=== PATIENT | male | born 1960 | race Caucasian/White ===

== ENCOUNTER 2020-03-26 07:41 | Outpatient (CLI) | payer OTHER ==
[~2020-03-26] VITALS: Ht 167.6 cm; Wt 111.1 kg
[2020-03-26] VITALS (10 sets, daily range): BP systolic 119–169; BP diastolic 69–85
[~2020-03-26 07:41] MED LIST: ASPI81TA59 PO; CARV6.25 PO; FURO-68 PO; LISI-338 PO; PANT40TA77 PO; SIMV80TA17 PO; SPIR25TA5 PO
[2020-03-26] MEDS ORDERED: IODIXANOL 320 MG/ML 100 ML VIAL. ONE (07:58)
[2020-03-26] MEDS ORDERED: LIDOCAINE 1% PF 2 ML VIAL. ONE (07:58)
[2020-03-26] MEDS ORDERED: ATOR40TA59 PO (08:17)
[2020-03-26] MEDS ORDERED: NITR0.4T22 SL (08:17)
[2020-03-26] MEDS ORDERED: CARV25TA2 PO (08:17)
[2020-03-26] MEDS ORDERED: FENO134C PO (08:17)
[2020-03-26] MEDS ORDERED: METF500S5 PO (08:17)
[2020-03-26 08:36] LABS: CALCIUM 9.3 mg/dL (8.5-10.1); GFR 76.5; POTASSIUM 4.4 mmol/L (3.5-5.1)
[2020-03-26 08:42] LABS: HEMATOCRIT 40.8 % (39.0-53.0); HEMOGLOBIN 13.9 g/dL (13.0-17.5); RED BLOOD COUNT 4.44 x10^6/uL (4.30-5.70); RED CELL DISTRIBUTION WIDTH 13.8 % (11.5-14.5); WHITE BLOOD COUNT 7.7 x10^3/uL (4.0-11.0)
[2020-03-26] MEDS ORDERED: MIDAZOLAM HCL/PF 2 MG/2 ML VIAL. ONE (09:12)
[2020-03-26] MEDS ORDERED: fentaNYL PF VIAL 100 MCG/2 ML VIAL ONE (09:12)
[2020-03-26] MEDS ORDERED: VERAPAMIL 5 MG/2 ML VIAL. ONE (09:13)
[2020-03-26] MEDS ORDERED: HEPARIN for IV BOLUS 10,000 UNIT/10 ML VIAL. ONE (09:13)
[2020-03-26] MEDS ORDERED: NITROGLYCERIN 200 MCG/2 ML SYRINGE FOR CATH/VASC LAB. ONE ×2 (09:13→10:18)
--- NOTE | 2020-03-26 09:20 | PDOC ---
MODERATE SEDATION ASSESSMENT RISKS/ALTERNATIVES Risks/Alternatives Risks and alternatives of this type of sedation and procedure discussed with: RISK/ALTERNATIVES: Patient H & P ON CHART H & P H & P on chart and reviewed for co-morbid conditions and appropriate labs. H&P ON CHART: Yes STATUS PREG STATUS ASSESSED: N/A MEDS/ALLERGIES REVIEWED Meds/Allergies Reviewed Medications and Allergies including time and route of recently administered narcotics and sedatives. MEDS/ALLERGIES REVIEWED: Yes ASA RATING ASA RATING: II AIRWAY ASSESSMENT Airway Assessment Airway patency, oral function limitations, presence of caps, crowns, dentures, partials, and ability to extend neck assessed. AIRWAY ASSESSMENT: Yes MALLAMPATI SCORE MALLAMPATI SCORE: II PRE-SEDATION ASSESSMENT PRE-SEDATION ASSESSMENT: Yes ELIAZAR SCALES MD Mar 26, 2020 09:20
[2020-03-26] MEDS ORDERED: TIROFIBAN 5MG -0.9% NS 0 ML IV ONE (09:46)
[2020-03-26] MEDS ORDERED: NITROGLYCERIN 200 MCG/2 ML SYRINGE FOR CATH/VASC LAB. IART ONE (10:15)
[2020-03-26] MEDS ORDERED: MIDAZOLAM HCL/PF 2 MG/2 ML VIAL. IV ONE (10:15)
[2020-03-26] MEDS ORDERED: IODIXANOL 320 MG/ML 100 ML VIAL. IART ONE (10:15)
[2020-03-26] MEDS ORDERED: VERAPAMIL 5 MG/2 ML VIAL. IART ONE (10:15)
[2020-03-26] MEDS ORDERED: fentaNYL PF VIAL 100 MCG/2 ML VIAL IV ONE (10:15)
[2020-03-26] MEDS ORDERED: LIDOCAINE 1% PF 2 ML VIAL. INJ ONE (10:15)
[2020-03-26] MEDS ORDERED: HEPARIN for IV BOLUS 10,000 UNIT/10 ML VIAL. IART ONE ×2 (10:15)
--- NOTE | 2020-03-26 12:29 | NUR ---
PIV dc'd. TR band dc'd. Armboard reapplied. Discharge instructions reviewed with pt. 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
--- NOTE | 2020-03-26 13:00 | NUR ---
referral for Dr. Roger Williamson faxed to Caron Langley case sealer at [facility].
--- NOTE | 2020-03-26 14:22 | CARD ---
MR#: [id number] Date of Study: 03/26/2020 Ordering Physician: ELIAZAR HERNANDEZ, Referring Physician: ELIAZAR HERNANDEZ, Tech: Caron Figueroa RT (R) APPROVED REPORT Technologist: Caron Figueroa RT (R) Nurse: Fawn Guerrero R.N. Procedure(s) performed: FLUORO TIME:11.0MIN DOSE:134 GYCM2 CONTRAST:121 CCS MODERATE SEDATION:66 MIN LHC, Coronary angiography iFR of the LAD [facility] Clinical Frailty Scale [facility] Clinical Frailty Scale: Moderately Frail Heart Failure Heart Failure: Yes If Yes, Newly Diagnosed: No If Yes, HF Type: Diastolic If Yes, NYHA Class: Class II CASE TECHNIQUE IV conscious sedation was used throughout procedure with appropriate monitoring and was performed in the presence of a registered nurse who was an independent trained observer other than the physician p erforming the procedure. During this case, Fluoroscopy and Iso-osmolar contrast were used for imaging . Specimen(s) Removed: N/A Estimated Blood loss: 15 cc's. PROCEDURE NARRATIVE Clinical information: 60-year-old man with a history of hypertension, diabetes and dyslipidemia presented to the office wit h accelerating angina and dyspnea. Given his risk factors and prior history of coronary artery disea se with PCI he was taken to the catheterization laboratory for further evaluation and treatment. Procedure details: After appropriate informed consent, the right wrist was prepped and draped in usual sterile fashion. Next, 10 mL of lidocaine was instilled in the right wrist and the radial artery was cannulated using the Seldinger technique and a 6 Lao sheath was placed without difficulty. Diagnostic angiography was performed with a 6 Lao TIG catheter and a JR4 catheter. Left ventricular end-diastolic press ure was obtained with a JR4 catheter and a pullback was performed. Findings: Aorta 150/80 LVEDP 15 mmHg No pullback gradient from the LV to the aorta new Coronary angiography: Left main is a large-caliber short segment vessel with immediate bifurcation of the LAD and left circ umflex. No significant disease is noted LAD is a moderate to large caliber vessel with a proximal 20% stenosis followed by a mid focal 70% st enosis and mild diffuse distal irregularities of up to 20% D1 is a moderate caliber vessel with mild irregularities of up to 30% Left circumflex is a moderate caliber vessel with a proximal 100% occlusion OM1 is seen to fill via left to left collaterals and is a small caliber vessel RCA is a large caliber dominant vessel with a proximal to mid 100% occlusion at the site of previousl y placed stents. The RPDA is a small to moderate caliber vessel seen to fill via left to right collaterals and has mil d diffuse irregularities and not fully visualized. Interventional technique: IFR of the LAD After evaluation of the angiogram a decision was made to perform a IFR on the mid LAD lesion. Hepari n was used for anticoagulation. Through a 6 Lao EBU 3.5 guide catheter a 0.014 inch pressure wire was advanced to the distal LAD after intracoronary nitroglycerin administration and appropriate norm alization of the pressure wire and IFR value was measured to be 0.45 confirmed on pullback measuremen ts. Final angiography demonstrated no evidence of guide or wire related complications. At case completion the right radial sheath was removed and a Terumo radial band was applied. Complications: None Conclusion 1. Normal left-sided filling pressures 2. Severe three-vessel coronary artery disease Recommendations 1. Referral for coronary bypass grafting versus isolated PCI of the LAD. Patient has a complex soci al situation and lives in a nursing home. His nursing homefuneral home makeup artist has been notified of a outpatient consultation for coronary bypass surgery and if he is deemed to be an appropriate candidate we will plan for bypass surgery in this diabetic individual with three-vessel disease otherwise we will plan for focal LAD stenting depending on conversation with the bypass surgery physicians. Signed by : Eliazar Hernandez, Electronically Approved : 03/26/2020 14:21:35
--- NOTE | 2020-03-27 09:13 | NUR ---
IP: Pt's COVID PCR returned positive. I notified pt at [facility] and instructed on need fro quarantine for 10 days and to let someone at the center know about + results. Pt verbalized understanding. Addendum: 03/27/20 at 0940 by GAURAV QUIGLEY RN IP: Delia Grimes, Director of [facility] called to verify test. Requested copy be faxed. Instructed him to talk with [facility] department for guidance of the residents. COVID results faxed to him.
== END 2020-03-26 13:23 | disposition home or self-care (01) ==
LOC: EEVIPCON 07:41 → CCL 07:41
PROVIDERS: ATTEND Internal Medicine Cardiovascular Disease
DX: I25.110 Atherosclerotic heart disease of native coronary artery with unstable angina pectoris (principal); E11.9 Type 2 diabetes mellitus without complications; I10 Essential (primary) hypertension; E78.00 Pure hypercholesterolemia, unspecified; Z87.891 Personal history of nicotine dependence; Z79.82 Long term (current) use of aspirin; Z79.84 Long term (current) use of oral hypoglycemic drugs; Z79.899 Other long term (current) drug therapy; Z98.890 Other specified postprocedural states; Z82.49 Family history of ischemic heart disease and other diseases of the circulatory system
CPT/HCPCS: 36415; 80048; 85027; 85610; 87426; 93458; 93571; 99152; 99153; C1769; C1887; C1892; C9803; J1644; J2250; J3010; J3490; Q9967; U0003

== ENCOUNTER 2020-04-09 02:22 | Inpatient (IN) | payer OTHER ==
[~2020-04-09] VITALS: Ht 167.6 cm; Wt 105.9 kg
[2020-04-09] VITALS (17 sets, daily range): BP systolic 111–190; BP diastolic 67–114
[~2020-04-09 02:22] MED LIST changes: +ATOR40TA59 PO; +CARV25TA2 PO; +FENO134C PO; -LISI-338 PO; +LISI-517 PO; +METF500S5 PO; +NITR0.4T22 SL
[2020-04-09] MEDS ORDERED: IV NORMAL SALINE 500ML BAG 500 ML IV ONE (02:30)
[2020-04-09] MEDS: NITROGLYCERIN SUBLINGUAL 0.4 MG BOTTLE OF 25. SL PRN ×4 (02:43→09:00)
[2020-04-09 02:44] LABS: BASO # 0.1 x10^3/uL (0.0-0.2); BASO % 2 % (0-3); EOS # 0.1 x10^3/uL (0.0-0.7); EOS % 2 % (0-3); HEMATOCRIT 40.3 % (39.0-53.0); LYMPH # 2.9 x10^3/uL (1.0-4.8); LYMPH % 37 % (24-48); MEAN CORPUSCULAR HEMOGLOBIN 32 pg (25-35); MEAN CORPUSCULAR HGB CONC 35 g/dL (31-37); MEAN CORPUSCULAR VOLUME 92 fL (79-100); MONO # 0.6 x10^3/uL (0.0-1.1); MONO % 7 % (0-9); NEUT % 52 % (31-73); PLATELET COUNT 323 x10^3/uL (140-400); RED BLOOD COUNT 4.37 x10^6/uL (4.30-5.70); RED CELL DISTRIBUTION WIDTH 13.8 % (11.5-14.5); WHITE BLOOD COUNT 7.7 x10^3/uL (4.0-11.0)
--- NOTE | 2020-04-09 02:48 | ED.ADGEN ---
Past Medical History Past Medical History: CAD, CHF, Diabetes-Type I, Hypertension Past Surgical History: Other Additional Past Surgical Histo: stent placement Smoking Status: Former Smoker General Adult EDM: Chief Complaint: CHEST PAIN HPI: HPI: Patient is a 60 year old male brought by EMS for chest pain starting at 2 AM, 3 months prior to arrival. Patient states that pain is in his left chest and sharp he also had pain in his entire left arm. Has some nausea but no vomiting. No diaphoresis, lightheadedness. Took one of his nitroglycerin and his pain went from a 10-8 and he took 3 baby aspirin. EMS gave him a second nitroglycerin and extra baby aspirin. That time his pain went down to a 5. Patient states his pain is still at a 5 out of 10. Says he felt well when he went to bed. Has a history of stent (S) placed in 2006. Unsure of how many. Says his lead producer had done a cath recently and says he has three-vessel disease. Due to his insurance they are trying to facilitate him getting a CABG at [facility], if he is not able to his lead producer is talk about placing 1 more stent. Patient has not been on any blood thinners other than aspirin. Has a history of diabetes, hypertension, dyslipidemia Review of Systems: Review of Systems: All other systems within normal limits except for as noted in the HPI Current Medications: Current Medications Medications (Trade) Dose Ordered Sig/Hussain Start Time Stop Time Status Last Admin Dose Admin Fentanyl Citrate (Fentanyl 2ml Vial) 75 mcg 1X ONCE 04/09/20 03:45 04/09/20 03:46 DC 04/09/20 03:50 75 MCG Nitroglycerin (Nitrostat) 0.4 mg PRN Q5MIN PRN 04/09/20 02:30 04/09/20 04:23 DC 04/09/20 03:30 0.4 MG Sodium Chloride 500 ml @ 500 mls/hr 1X ONCE 04/09/20 02:30 04/09/20 03:29 DC 04/09/20 02:44 500 MLS/HR Allergies: Allergies: Allergies Coded Allergies Type Severity Reaction Last Updated Verified codeine Allergy Unknown Itching 04/09/20 Yes Physical Exam: PE: Constitutional: Well developed, well nourished, no acute distress, non-toxic appearance. [] HENT: Normocephalic, atraumatic, bilateral external ears normal, nose normal. [] Eyes: PERRLA, conjunctiva normal, no discharge. [] Neck: No rigidity, supple, no stridor. [] Cardiovascular: Regular rate and rhythm, brisk cap refill [] Lungs & Thorax: Non labored symmetric respirations, no tachypnea or respiratory distress [] Abdomen: Soft, nondistended. Skin: Warm, dry, no erythema, no rash. [] Back: Unremarkable Extremities: No deformities, range of motion grossly intact, no lower extremity edema [] Neurologic: Alert and oriented X 3, no focal deficits noted. [] Psychologic: Affect normal, judgement normal, mood normal. [] Current Patient Data: Labs: Laboratory Tests Test 04/09/20 02:34 04/09/20 02:46 White Blood Count 7.7 x10^3/uL (4.0-11.0) Red Blood Count 4.37 x10^6/uL (4.30-5.70) Hemoglobin 14.0 g/dL (13.0-17.5) Hematocrit 40.3 % (39.0-53.0) Mean Corpuscular Volume 92 fL (79-100) Mean Corpuscular Hemoglobin 32 pg (25-35) Mean Corpuscular Hemoglobin Concent 35 g/dL (31-37) Red Cell Distribution Width 13.8 % (11.5-14.5) Platelet Count 323 x10^3/uL (140-400) Neutrophils (%) (Auto) 52 % (31-73) Lymphocytes (%) (Auto) 37 % (24-48) Monocytes (%) (Auto) 7 % (0-9) Eosinophils (%) (Auto) 2 % (0-3) Basophils (%) (Auto) 2 % (0-3) Neutrophils # (Auto) 4.0 x10^3/uL (1.8-7.7) Lymphocytes # (Auto) 2.9 x10^3/uL (1.0-4.8) Monocytes # (Auto) 0.6 x10^3/uL (0.0-1.1) Eosinophils # (Auto) 0.1 x10^3/uL (0.0-0.7) Basophils # (Auto) 0.1 x10^3/uL (0.0-0.2) Sodium Level 138 mmol/L (136-145) Potassium Level 4.5 mmol/L (3.5-5.1) Chloride Level 103 mmol/L (98-107) Carbon Dioxide Level 25 mmol/L (21-32) Anion Gap 10 (6-14) Blood Urea Nitrogen 14 mg/dL (8-26) Creatinine 0.9 mg/dL (0.7-1.3) Estimated GFR (Cockcroft-Gault) 86.4 BUN/Creatinine Ratio 16 (6-20) Glucose Level 168 mg/dL (70-99) H Calcium Level 8.9 mg/dL (8.5-10.1) Magnesium Level 2.1 mg/dL (1.8-2.4) Total Bilirubin 0.3 mg/dL (0.2-1.0) Aspartate Amino Transferase (AST) 19 U/L (15-37) Alanine Aminotransferase (ALT) 48 U/L (16-63) Alkaline Phosphatase 55 U/L (46-116) Troponin I Quantitative < 0.017 ng/mL (0.000-0.055) ZD-Iqp-H-Type Natriuretic Peptide 43 pg/mL (0-124) Total Protein 7.4 g/dL (6.4-8.2) Albumin 3.5 g/dL (3.4-5.0) Albumin/Globulin Ratio 0.9 (1.0-1.7) L Lactic Acid Level 2.0 mmol/L (0.4-2.0) Laboratory Tests 04/09/20 02:34 Laboratory Tests 04/09/20 02:34 Vital Signs: Vital Signs Date Time Temp Pulse Resp B/P (MAP) Pulse Ox O2 Delivery O2 Flow Rate FiO2 04/09/20 03:50 19 95 Room Air 04/09/20 03:42 96 140/74 (96) 04/09/20 02:22 98.0 98.0 EKG: EKG: ECG, sinus rhythm, heart rate 65 minutes, several PVCs. No obvious ST elevation or depression, normal intervals. Interpretation somewhat limited by headache artifact at baseline. No significant change when compared to ECG from 07-27-2013 [] Heart Score: HEART Score for Chest Pain: HEART Score for Chest Pain Response (Comments) Value History Moderately Suspicious 1 ECG Nonspecific Repolarizatio 1 Risk Factors >3 Risk Factors or Hx CAD 2 Troponin < Normal Limit 0 Total 4 Risk Factors: Risk Factors: DM, Current or recent (<one month) smoker, HTN, HLP, family history of CAD, obesity. Risk Scores: Score 0 - 3: 2.5% MACE over next 6 weeks - Discharge Home Score 4 - 6: 20.3% MACE over next 6 weeks - Admit for Clinical Observation Score 7 - 10: 72.7% MACE over next 6 weeks - Early Invasive Strategies Radiology/Procedures: Radiology/Procedures: AP chest x-ray HISTORY: Chest pain. FINDINGS: Mild cardiomegaly. Aortic arch calcified plaque. Prominence of the pulmonary vasculature may represent congestion. Increased medial basilar and infrahilar opacities since prior x-rays raising the possibility of atelectasis, pulmonary edema or pneumonic infiltrates. Bones are unremarkable. IMPRESSION: Mild cardiomegaly. There may be mild pulmonary vascular congestion. Infrahilar and medial basilar lower lobe opacities may represent atelectasis, pulmonary edema or pneumonia.[] Course & Med Decision Making: Course & Med Decision Making Pertinent Labs and Imaging studies reviewed. (See chart for details) Heart score 4, will admit for chest pain observation and cardiology consult. [] Dragon Disclaimer: Dragon Disclaimer: This electronic medical record was generated, in whole or in part, using a voice recognition dictation system. Departure Departure Impression: Primary Impression: Chest pain Disposition: ADMITTED INPT THIS HOSP Admitting Physician: WILLIE Condition: STABLE Referrals: NON,STAFF (PCP) JOSEFINA THOMAS MD Apr 09, 2020 02:48
[2020-04-09 02:59] LABS: CALCIUM 8.9 mg/dL (8.5-10.1); CREATININE 0.9 mg/dL (0.7-1.3); GFR 86.4; POTASSIUM 4.5 mmol/L (3.5-5.1)
[2020-04-09 03:05] LABS: ALBUMIN 3.5 g/dL (3.4-5.0); ALBUMIN/GLOBULIN RATIO 0.9 (1.0-1.7); MAGNESIUM 2.1 mg/dL (1.8-2.4); TOTAL BILIRUBIN 0.3 mg/dL (0.2-1.0); TOTAL PROTEIN 7.4 g/dL (6.4-8.2)
--- NOTE | 2020-04-09 03:18 | RAD ---
AP chest x-ray HISTORY: Chest pain. FINDINGS: Mild cardiomegaly. Aortic arch calcified plaque. Prominence of the pulmonary vasculature ma y represent congestion. Increased medial basilar and infrahilar opacities since prior x-rays raising the possibility of atelectasis, pulmonary edema or pneumonic infiltrates. Bones are unremarkable. IMPRESSION: Mild cardiomegaly. There may be mild pulmonary vascular congestion. Infrahilar and medial basilar lower lobe opacities may represent atelectasis, pulmonary edema or pneumonia. Electronically signed by: Obinna Gould MD (04/09/2020 3:15 AM) [facility]
[2020-04-09] MEDS ORDERED: fentaNYL PF VIAL 100 MCG/2 ML VIAL IVP ONE (03:45)
[2020-04-09] MEDS ORDERED: fentaNYL PF VIAL 100 MCG/2 ML VIAL IV PRN (04:00)
[2020-04-09] MEDS ORDERED: ONDANSETRON PF 4 MG/2 ML VIAL. IV PRN (04:00)
[2020-04-09] MEDS ORDERED: ACETAMINOPHEN 325 MG TABLET. PO PRN (04:00)
[2020-04-09 04:07] LABS: BILIRUBIN,URINE NEGATIVE (NEG); CLARITY,URINE CLEAR; COLOR,URINE YELLOW; NITRITE,URINE NEGATIVE (NEG); PROTEIN,URINE NEGATIVE (NEG-TRACE); UROBILINOGEN,URINE 0.2 mg/dL (0.2 mg/dL)
[2020-04-09 04:12] LABS: BACTERIA,URINE 0 /HPF (0-FEW); RBC,URINE 0 /HPF (0-2); WBC,URINE 0 /HPF (0-4)
[2020-04-09 04:13] LABS: AMPHETAMINE/METHAMPHETAMINE NEG (NEG); BARBITURATES NEG (NEG); BENZODIAZEPINES NEG (NEG); CANNABINOIDS NEG (NEG); COCAINE NEG (NEG); METHADONE NEG (NEG); OPIATES NEG (NEG); PHENCYCLIDINE NEG (NEG)
[2020-04-09] MEDS ORDERED: OMEP40CA7 PO (05:33)
[2020-04-09] MEDS ORDERED: LEVO25TA4 PO (05:33)
[2020-04-09] MEDS ORDERED: DEXTROSE 50% 25 GM / 50ML DISP.SYRIN. IV PRN (07:00)
--- NOTE | 2020-04-09 07:31 | PDOC1 ---
History and Physical Date of Admission Date of Admission DATE: 04/09/20 TIME: 06:49 Identification/Chief Complaint Chief Complaint Chest pain Source Source: Chart review, Patient History of Present Illness History of Present Illness Mr Benjamin is a 60yo M w/ PMHx CAD with stenting x2, HTN, HLD, DM2 brought to ED via EMS from [facility] c/o left-sided chest pain. Radiates into his left arm. Pain is sharp and woke him up from sleep at 0200 in the morning. He complains of associated nausea no vomiting. He did have a redose of 81 mg of aspirin and nitroglycerin sublingual x2 doses with some relief. He does note recently tested positive for COVID-19 01/2020. He also tested positive for COVID-19 PCR on 03/26/2020 underwent a cardiac catheterization. He quit smoking in Mar. His last stress test was in Mar. He had a cardiac catheterization on 03/26/2020 with findings of triple vessel disease and had referral for CABG awaiting CT surgery assessment on whether to move forward with this vs return for stenting of LAD lesion confirmed on iFR in biology laboratory assistant. Noted with in-stent stenosis of 2 prior RCA stents and 100% occlusion of left circumflex. After CT surgery and [facility] reviewed cardiac cath images it was noted that there were no good distal targets and he was not a good candidate for CABG and should move forward with LAD stenting. EKG with PVCs. P-waves indicating left atrial abnormality T wave flattening indicative of inferior ischemia or left ventricular strain. Chest radiograph revealing cardiomegaly aortic arch with calcified plaques prominent pulmonary vasculature and increased interstitial markings as well as bibasilar opacities. Labs WBC 7.7, Hb 14, platelets 323, NA 138, K4.5, BUN 14, CR 0.9, glucose 168 BNP 43, troponin 0. Admitted for further care. Past Medical History Cardiovascular: CAD, HTN Endocrine: Diabetes Past Surgical History Past Surgical History: Other Family History Family History: Heart Disease Social History Smoke: Quit (2013) ALCOHOL: none Drugs: None Current Problem List Problem List Problems Medical Problems: (1) Chest pain Status: Acute Current Medications Current Medications Current Medications Sodium Chloride 500 ml @ 500 mls/hr 1X ONCE IV Last administered on 04/09/20at 02:44; Start 04/09/20 at 02:30; Stop 04/09/20 at 03:29; Status DC Nitroglycerin (Nitrostat) 0.4 mg PRN Q5MIN PRN SL CHEST PAIN Last administered on 04/09/20at 03:30; Start 04/09/20 at 02:30; Stop 04/09/20 at 04:23; Status DC Fentanyl Citrate (Fentanyl 2ml Vial) 75 mcg 1X ONCE IVP Last administered on 04/09/20at 03:50; Start 04/09/20 at 03:45; Stop 04/09/20 at 03:46; Status DC Ondansetron HCl (Zofran) 4 mg PRN Q8HRS PRN IV NAUSEA/VOMITING; Start 04/09/20 at 04:00; Stop 04/10/20 at 03:59 Morphine Sulfate (Morphine Sulfate) 4 mg PRN Q2HR PRN IV PAIN; Start 04/09/20 at 04:00; Stop 04/10/20 at 03:59 Fentanyl Citrate (Fentanyl 2ml Vial) 50 mcg PRN Q1HR PRN IV PAIN; Start 04/09/20 at 04:00; Stop 04/10/20 at 03:59 Acetaminophen (Tylenol) 650 mg PRN Q4HRS PRN PO FEVER > 100.3'F; Start 04/09/20 at 04:00; Stop 04/10/20 at 03:59 Nitroglycerin (Nitrostat) 0.4 mg PRN Q5MIN PRN SL CHEST PAIN; Start 04/09/20 at 04:00; Stop 04/10/20 at 03:59 Active Scripts Active Reported Levothyroxine Sodium 25 Mcg Tablet 1 Tab PO DAILY Omeprazole 40 Mg Capsule.dr 1 Cap PO DAILY Atorvastatin Calcium 40 Mg Tablet 1 Tab PO DAILY Carvedilol 25 Mg Tablet 25 Mg PO BIDWMEALS Fenofibrate (Fenofibrate,Micronized) 134 Mg Capsule 1 Cap PO DAILY NITROGLYCERIN SubLingual (Nitroglycerin) 0.4 Mg Tab.subl 0.4 Mg SL PRN Q5MIN PRN Metformin HCl 500 Mg/5 Ml Solution 500 Mg PO BID Lisinopril 5 Mg Tablet 40 Mg PO DAILY Lasix (Furosemide) 40 Mg Tablet 40 Mg PO BID Children's Aspirin (Aspirin) 81 Mg Tab.chew 81 Mg PO DAILY Allergies Allergies: Coded Allergies: codeine (Verified Allergy, Unknown, Itching, 2/4/21) ROS General: YES: Fatigue, Malaise; No: Chills, Night Sweats, Appetite, Other PSYCHOLOGICAL ROS: No: Anxiety, Behavioral Disorder, Concentration difficultie, Decreased libido, Depression, Disorientation, Hallucinations, Hostility, Irritablity, Memory difficulties, Mood Swings, Obsessive thoughts, Physical abuse, Sexual abuse, Sleep disturbances, Suicidal ideation, Other Eyes: No Blurry vision, No Decreased vision, No Double vision, No Dry eyes, No Excessive tearing, No Eye Pain, No Itchy Eyes, No Loss of vision, No Photophobia, No Scotomata, No Uses contacts, No Uses glasses, No Other HEENT: No: Heacaches, Visual Changes, Hearing change, Nasal congestion, Nasal discharge, Oral lesions, Sinus pain, Sore Throat, Epistaxis, Sneezing, Snoring, Tinnitus, Vertigo, Vocal changes, Other ALLERGY AND IMMUNOLOGY: No: Hives, Insect Bite Sensitivity, Itchy/Watery Eyes, Nasal Congestion, Post Nasal Drip, Seasonal Allergies, Other Hematological and Lymphatic: No: Bleeding Problems, Blood Clots, Blood Transfusions, Brusing, Night Sweats, Pallor, Swollen Lymph Nodes, Other ENDOCRINE: No: Breast Changes, Galactorrhea, Hair Pattern Changes, Hot Flashes, Malaise/lethargy, Mood Swings, Palpitations, Polydipsia/polyuria, Skin Changes, Temperature Intolerance, Unexpected Weight Changes, Other Breast: No New/Changing Breast Lumps, No Nipple changes, No Nipple discharge, No Other Respiratory: YES: Shortness of breath; No: Cough, Hemoptysis, Orthopnea, Pleuritic Pain, SOB with excertion, Sputum Changes, Stridor, Tachypnea, Wheezing, Other Cardiovascular: yes Chest Pain; No Palpitations, No Orthopnea, No Paroxysmal Noc. Dyspnea, No Edema, No Lt Headedness, No Other Gastrointestinal: Yes Nausea; No Vomiting, No Abdominal Pain, No Diarrhea, No Constipation, No Melena, No Hematochezia, No Other Genitourinary: No Dysuria, No Frequency, No Incontinence, No Hematuria, No Retention, No Discharge, No Urgency, No Pain, No Flank Pain, No Other, No , No , No , No , No , No , No Musculoskeletal: No Gait Disturbance, No Joint Pain, No Joint Stiffness, No Joint Swelling, No Muscle Pain, No Muscular Weakness, No Pain In:, No Swelling In:, No Other Neurological: No Behavorial Changes, No Bowel/Bladder ControlChng, No Confusion, No Dizziness, No Gait Disturbance, No Headaches, No Impaired Coord/balance, No Memory Loss, No Numbness/Tingling, No Seizures, No Speech Problems, No Tremors, No Visual Changes, No Weakness, No Other Skin: No Dry Skin, No Eczema, No Hair Changes, No Lumps, No Mole Changes, No Mottling, No Nail Changes, No Pruritus, No Rash, No Skin Lesion Changes, No Other, No Acne Physical Exam General: Alert, Oriented X3, Cooperative, mild distress HEENT: Atraumatic, PERRLA, EOMI, Mucous membr. moist/pink Lungs: Clear to auscultation, Normal air movement Heart: S1S2, RRR, no thrills, no rubs, no gallops, no murmurs Abdomen: Normal bowel sounds, Soft, No tenderness, No hepatosplenomegaly, No masses Rectal Exam: not examined Extremities: No clubbing, No cyanosis, No edema, Normal pulses, No tenderness/swelling Skin: No rashes, No breakdown, No significant lesion Neuro: Normal gait, Normal speech, Strength at 5/5 X4 ext, Normal tone, Sensation intact, Cranial nerves 3-12 NL, Reflexes 2+ Psych/Mental Status: Mental status NL, Mood NL Vitals Vitals Vital Signs Date Time Temp Pulse Resp B/P (MAP) Pulse Ox O2 Delivery O2 Flow Rate FiO2 04/09/20 05:40 Room Air 04/09/20 05:00 97.7 92 16 138/67 (90) 95 97.7 Labs Labs Laboratory Tests Test 04/09/20 02:34 04/09/20 02:46 04/09/20 03:58 White Blood Count 7.7 x10^3/uL (4.0-11.0) Red Blood Count 4.37 x10^6/uL (4.30-5.70) Hemoglobin 14.0 g/dL (13.0-17.5) Hematocrit 40.3 % (39.0-53.0) Mean Corpuscular Volume 92 fL (79-100) Mean Corpuscular Hemoglobin 32 pg (25-35) Mean Corpuscular Hemoglobin Concent 35 g/dL (31-37) Red Cell Distribution Width 13.8 % (11.5-14.5) Platelet Count 323 x10^3/uL (140-400) Neutrophils (%) (Auto) 52 % (31-73) Lymphocytes (%) (Auto) 37 % (24-48) Monocytes (%) (Auto) 7 % (0-9) Eosinophils (%) (Auto) 2 % (0-3) Basophils (%) (Auto) 2 % (0-3) Neutrophils # (Auto) 4.0 x10^3/uL (1.8-7.7) Lymphocytes # (Auto) 2.9 x10^3/uL (1.0-4.8) Monocytes # (Auto) 0.6 x10^3/uL (0.0-1.1) Eosinophils # (Auto) 0.1 x10^3/uL (0.0-0.7) Basophils # (Auto) 0.1 x10^3/uL (0.0-0.2) Sodium Level 138 mmol/L (136-145) Potassium Level 4.5 mmol/L (3.5-5.1) Chloride Level 103 mmol/L (98-107) Carbon Dioxide Level 25 mmol/L (21-32) Anion Gap 10 (6-14) Blood Urea Nitrogen 14 mg/dL (8-26) Creatinine 0.9 mg/dL (0.7-1.3) Estimated GFR (Cockcroft-Gault) 86.4 BUN/Creatinine Ratio 16 (6-20) Glucose Level 168 mg/dL (70-99) Calcium Level 8.9 mg/dL (8.5-10.1) Magnesium Level 2.1 mg/dL (1.8-2.4) Total Bilirubin 0.3 mg/dL (0.2-1.0) Aspartate Amino Transf (AST/SGOT) 19 U/L (15-37) Alanine Aminotransferase (ALT/SGPT) 48 U/L (16-63) Alkaline Phosphatase 55 U/L (46-116) Troponin I Quantitative < 0.017 ng/mL (0.000-0.055) NR-Mhm-W-Type Natriuretic Peptide 43 pg/mL (0-124) Total Protein 7.4 g/dL (6.4-8.2) Albumin 3.5 g/dL (3.4-5.0) Albumin/Globulin Ratio 0.9 (1.0-1.7) Lactic Acid Level 2.0 mmol/L (0.4-2.0) Urine Collection Type Unknown Urine Color Yellow Urine Clarity Clear Urine pH 5.0 (<5.0-8.0) Urine Specific [place] 1.025 (1.000-1.030) Urine Protein Negative mg/dL (NEG-TRACE) Urine Glucose (UA) Negative mg/dL (NEG) Urine Ketones (Stick) Negative mg/dL (NEG) Urine Blood Negative (NEG) Urine Nitrite Negative (NEG) Urine Bilirubin Negative (NEG) Urine Urobilinogen Dipstick 0.2 mg/dL (0.2 mg/dL) Urine Leukocyte Esterase Negative (NEG) Urine RBC 0 /HPF (0-2) Urine WBC 0 /HPF (0-4) Urine Squamous Epithelial Cells Occ /LPF Urine Bacteria 0 /HPF (0-FEW) Urine Mucus Mod /LPF Urine Opiates Screen Neg (NEG) Urine Methadone Screen Neg (NEG) Urine Barbiturates Neg (NEG) Urine Phencyclidine Screen Neg (NEG) Urine Amphetamine/Methamphetamine Neg (NEG) Urine Benzodiazepines Screen Neg (NEG) Urine Cocaine Screen Neg (NEG) Urine Cannabinoids Screen Neg (NEG) Urine Ethyl Alcohol Neg (NEG) Laboratory Tests Test 04/09/20 02:34 04/09/20 02:46 04/09/20 03:58 White Blood Count 7.7 x10^3/uL (4.0-11.0) Red Blood Count 4.37 x10^6/uL (4.30-5.70) Hemoglobin 14.0 g/dL (13.0-17.5) Hematocrit 40.3 % (39.0-53.0) Mean Corpuscular Volume 92 fL (79-100) Mean Corpuscular Hemoglobin 32 pg (25-35) Mean Corpuscular Hemoglobin Concent 35 g/dL (31-37) Red Cell Distribution Width 13.8 % (11.5-14.5) Platelet Count 323 x10^3/uL (140-400) Neutrophils (%) (Auto) 52 % (31-73) Lymphocytes (%) (Auto) 37 % (24-48) Monocytes (%) (Auto) 7 % (0-9) Eosinophils (%) (Auto) 2 % (0-3) Basophils (%) (Auto) 2 % (0-3) Neutrophils # (Auto) 4.0 x10^3/uL (1.8-7.7) Lymphocytes # (Auto) 2.9 x10^3/uL (1.0-4.8) Monocytes # (Auto) 0.6 x10^3/uL (0.0-1.1) Eosinophils # (Auto) 0.1 x10^3/uL (0.0-0.7) Basophils # (Auto) 0.1 x10^3/uL (0.0-0.2) Sodium Level 138 mmol/L (136-145) Potassium Level 4.5 mmol/L (3.5-5.1) Chloride Level 103 mmol/L (98-107) Carbon Dioxide Level 25 mmol/L (21-32) Anion Gap 10 (6-14) Blood Urea Nitrogen 14 mg/dL (8-26) Creatinine 0.9 mg/dL (0.7-1.3) Estimated GFR (Cockcroft-Gault) 86.4 BUN/Creatinine Ratio 16 (6-20) Glucose Level 168 mg/dL (70-99) Calcium Level 8.9 mg/dL (8.5-10.1) Magnesium Level 2.1 mg/dL (1.8-2.4) Total Bilirubin 0.3 mg/dL (0.2-1.0) Aspartate Amino Transf (AST/SGOT) 19 U/L (15-37) Alanine Aminotransferase (ALT/SGPT) 48 U/L (16-63) Alkaline Phosphatase 55 U/L (46-116) Troponin I Quantitative < 0.017 ng/mL (0.000-0.055) LD-Cwa-Q-Type Natriuretic Peptide 43 pg/mL (0-124) Total Protein 7.4 g/dL (6.4-8.2) Albumin 3.5 g/dL (3.4-5.0) Albumin/Globulin Ratio 0.9 (1.0-1.7) Lactic Acid Level 2.0 mmol/L (0.4-2.0) Urine Collection Type Unknown Urine Color Yellow Urine Clarity Clear Urine pH 5.0 (<5.0-8.0) Urine Specific [place] 1.025 (1.000-1.030) Urine Protein Negative mg/dL (NEG-TRACE) Urine Glucose (UA) Negative mg/dL (NEG) Urine Ketones (Stick) Negative mg/dL (NEG) Urine Blood Negative (NEG) Urine Nitrite Negative (NEG) Urine Bilirubin Negative (NEG) Urine Urobilinogen Dipstick 0.2 mg/dL (0.2 mg/dL) Urine Leukocyte Esterase Negative (NEG) Urine RBC 0 /HPF (0-2) Urine WBC 0 /HPF (0-4) Urine Squamous Epithelial Cells Occ /LPF Urine Bacteria 0 /HPF (0-FEW) Urine Mucus Mod /LPF Urine Opiates Screen Neg (NEG) Urine Methadone Screen Neg (NEG) Urine Barbiturates Neg (NEG) Urine Phencyclidine Screen Neg (NEG) Urine Amphetamine/Methamphetamine Neg (NEG) Urine Benzodiazepines Screen Neg (NEG) Urine Cocaine Screen Neg (NEG) Urine Cannabinoids Screen Neg (NEG) Urine Ethyl Alcohol Neg (NEG) Images Images Chest radiograph: Mild cardiomegaly. Aortic arch calcified plaque. Prominence of the pulmonary vasculature may represent congestion. Increased medial basilar and infrahilar opacities since prior x-rays raising the possibility of atelectasis, pulmonary edema or pneumonic infiltrates. Bones are unremarkable. IMPRESSION: Mild cardiomegaly. There may be mild pulmonary vascular congestion. Infrahilar and medial basilar lower lobe opacities may represent atelectasis, pulmonary edema or pneumonia. Cardiac cath 03/26/2020: Left main is a large-caliber short segment vessel with immediate bifurcation of the LAD and left circumflex. No significant disease is noted LAD is a moderate to large caliber vessel with a proximal 20% stenosis followed by a mid focal 70% stenosis and mild diffuse distal irregularities of up to 20% - iFR confirms stenosis D1 is a moderate caliber vessel with mild irregularities of up to 30% Left circumflex is a moderate caliber vessel with a proximal 100% occlusion OM1 is seen to fill via left to left collaterals and is a small caliber vessel RCA is a large caliber dominant vessel with a proximal to mid 100% occlusion at the site of previously placed stents. The RPDA is a small to moderate caliber vessel seen to fill via left to right collaterals and has mild diffuse irregularities and not fully visualized. VTE Prophylaxis Ordered VTE Prophylaxis Devices: No VTE Pharmacological Prophylaxi: Yes Assessment/Plan Assessment/Plan A/P: Chest pain - unstable angina likely given triple vessel disease. Will trend troponins, telemetry. Will need to d/w CT surgery via cardiology next steps CAD with stenting x2 - recent cardiac cath notes stenosis of prior RCA stenting and left circumflex occlusion and 70% LAD lesion. Cardiology to follow through with CT surgery recommendations and stent LAD likely today. HTN - monitor BP HLD - statin DM2 - Sliding scale, check A1c FEN - NPO PPX - Heparin GTT FULL CODE Dispo - inpatient Justifications for Admission Other Justification LIAN VALERA MD Apr 09, 2020 07:31
[2020-04-09] MEDS: INSULIN LISPRO 300 UNITS/3 ML VIAL. SQ SCH ×3 (08:00→17:00)
[2020-04-09 08:19] LABS: CHOLESTEROL/HDL RATIO 2.1
[2020-04-09] MEDS ORDERED: ISOSORBIDE MONONITRATE ER 30 MG TAB.ER.24H PO SCH (09:00)
[2020-04-09] MEDS ORDERED: NITROGLYCERIN PREMIX 250 ML IV ONE (09:00)
--- NOTE | 2020-04-09 09:18 | EKG ---
[facility] [address] [place] [address] Test Date: 2020-04-09 Test Time: 09:16:29 Pat Name: ALEJANDRO TENORIO Department: Room: 206 1 Gender: M Meter Engineer: CLAUDE : 1960 Requested By: ELIAZAR SCALES Order Number: [id number] Reading MD: Sushil Baron Measurements Intervals [place] Rate: 97 P: 54 CO: 144 QRS: 45 QRSD: 104 T: 39 QT: 370 QTc: 474 Interpretive Statements SINUS RHYTHM PROLONGED QT Electronically Signed On 04-14-2020 9:54:21 APARTMENT LEASING MANAGER by Sushil Baron
[2020-04-09] MEDS: HEPARIN 25,000UTS/250ML PREMIX 250 ML IV PRN (09:42)
[2020-04-09] MEDS ORDERED: IOHEXOL 300 MG/ML 100ML VIAL. ONE ×2 (09:58→11:32)
[2020-04-09] MEDS ORDERED: LIDOCAINE 1% PF 2 ML VIAL. ONE (09:58)
--- NOTE | 2020-04-09 09:58 | PDOC2 ---
CYNDI DE LA GARZA PROGRAM CLERK 04/09/20 0958: CARDIAC CONSULT DATE OF CONSULT Date of Consult DATE: 04/09/20 TIME: 09:45 REASON FOR CONSULT Reason for Consult: Chest pain REFERRING PHYSICIAN Referring Physician: Messi SOURCE Source: Chart review, Patient HISTORY OF PRESENT ILLNESS HISTORY OF PRESENT ILLNESS This is a pleasant 60 yo male admitted for complains of chest pain. Reports that he started having chest pressure at 1:30 AM associated with nausea, diaphoresis, and SOA. He is known for CAD and had a LHC 03/26/20 due to angina and being considered for CABG but this is not covered by his insurance post incarcerated individuals at [facility]. [facility] reviewed his case and noted he has poor target vessel hence for CABG. He is then been considered for PCI. He was provided with medical therapy for the meantime but unfortunately he was not able to obtain these meds through his detention house. He continues to smoke tobacco. He was also positive for covid-19 in and remains positive from 03/26/2020. No post Covid-19 symptoms. PAST MEDICAL HISTORY Cardiovascular: CAD, HTN, Hyperlipidemia Pulmonary: Other (MYNOR?) CENTRAL NERVOUS SYSTEM: Other (No pertinent history) GI: No pertinent hx Heme/Onc: No pertinent hx Hepatobiliary: No pertinent hx Psych: No pertinent hx Musculoskeletal: Osteoarthritis Rheumatologic: No pertinent hx Infectious disease: No pertinent hx ENT: No pertinent hx Renal/: No pertinent hx Endocrine: Diabetes Dermatology: No pertinent hx PAST SURGICAL HISTORY Past Surgical History: Other (eye surgery, [facility]) FAMILY HISTORY Family History: Family History Unknown SOCIAL HISTORY Smoke: <1 pack per day ALCOHOL: none Drugs: None Lives: Alone CURRENT MEDICATIONS CURRENT MEDICATIONS Current Medications Medications (Trade) Dose Ordered Sig/Hussain Route PRN Reason Start Time Stop Time Status Last Admin Dose Admin Sodium Chloride 500 ml @ 500 mls/hr 1X ONCE IV 04/09/20 02:30 04/09/20 03:29 DC 04/09/20 02:44 Nitroglycerin (Nitrostat) 0.4 mg PRN Q5MIN PRN SL CHEST PAIN 04/09/20 02:30 04/09/20 04:23 DC 04/09/20 03:30 Fentanyl Citrate (Fentanyl 2ml Vial) 75 mcg 1X ONCE IVP 04/09/20 03:45 04/09/20 03:46 DC 04/09/20 03:50 Nitroglycerin (Nitrostat) 0.4 mg PRN Q5MIN PRN SL CHEST PAIN 04/09/20 04:00 04/10/20 03:59 04/09/20 09:00 Heparin Sodium/ Dextrose 250 ml @ 0 mls/hr CONT PRN IV PER PROTOCOL 04/09/20 09:00 04/09/20 09:42 Nitroglycerin/ Dextrose 250 ml @ 0 mls/hr 1X ONCE IV 04/09/20 09:00 04/09/20 09:07 DC 04/09/20 09:44 ALLERGIES ALLERGIES: Coded Allergies: codeine (Verified Allergy, Intermediate, Itching, 04/09/20) ROS Review of System 14 point ROS evaluated with pertinent positives noted per HPI PHYSICAL EXAM General: Alert, Oriented X3, Cooperative, No acute distress HEENT: Atraumatic, Mucous membr. moist/pink Lungs: Clear to auscultation, Normal air movement Heart: Regular rate, Normal S1, Normal S2, No murmurs Abdomen: Soft, No tenderness Extremities: No cyanosis, No edema Skin: No breakdown, No significant lesion Neuro: Normal speech, Sensation intact Psych/Mental Status: Mental status NL, Mood NL MUSCULOSKELETAL: Osteoarthritic changes both hands VITALS/I&O VITALS/I&O: Vital Signs Date Time Temp Pulse Resp B/P (MAP) Pulse Ox O2 Delivery O2 Flow Rate FiO2 04/09/20 09:00 94 137/80 04/09/20 07:00 98.0 16 95 Room Air 98.0 I & O 04/08/20 04/08/20 04/09/20 15:00 23:00 07:00 Intake Total 0 ml Balance 0 ml LABS Lab: Laboratory Tests Test 04/09/20 02:34 04/09/20 02:46 04/09/20 03:58 04/09/20 07:25 White Blood Count 7.7 x10^3/uL (4.0-11.0) Red Blood Count 4.37 x10^6/uL (4.30-5.70) Hemoglobin 14.0 g/dL (13.0-17.5) Hematocrit 40.3 % (39.0-53.0) Mean Corpuscular Volume 92 fL (79-100) Mean Corpuscular Hemoglobin 32 pg (25-35) Mean Corpuscular Hemoglobin Concent 35 g/dL (31-37) Red Cell Distribution Width 13.8 % (11.5-14.5) Platelet Count 323 x10^3/uL (140-400) Neutrophils (%) (Auto) 52 % (31-73) Lymphocytes (%) (Auto) 37 % (24-48) Monocytes (%) (Auto) 7 % (0-9) Eosinophils (%) (Auto) 2 % (0-3) Basophils (%) (Auto) 2 % (0-3) Neutrophils # (Auto) 4.0 x10^3/uL (1.8-7.7) Lymphocytes # (Auto) 2.9 x10^3/uL (1.0-4.8) Monocytes # (Auto) 0.6 x10^3/uL (0.0-1.1) Eosinophils # (Auto) 0.1 x10^3/uL (0.0-0.7) Basophils # (Auto) 0.1 x10^3/uL (0.0-0.2) Sodium Level 138 mmol/L (136-145) Potassium Level 4.5 mmol/L (3.5-5.1) Chloride Level 103 mmol/L (98-107) Carbon Dioxide Level 25 mmol/L (21-32) Anion Gap 10 (6-14) Blood Urea Nitrogen 14 mg/dL (8-26) Creatinine 0.9 mg/dL (0.7-1.3) Estimated GFR (Cockcroft-Gault) 86.4 BUN/Creatinine Ratio 16 (6-20) Glucose Level 168 mg/dL (70-99) H Calcium Level 8.9 mg/dL (8.5-10.1) Magnesium Level 2.1 mg/dL (1.8-2.4) Total Bilirubin 0.3 mg/dL (0.2-1.0) Aspartate Amino Transferase (AST) 19 U/L (15-37) Alanine Aminotransferase (ALT) 48 U/L (16-63) Alkaline Phosphatase 55 U/L (46-116) Troponin I Quantitative < 0.017 ng/mL (0.000-0.055) 0.120 ng/mL (0.000-0.055) VW-Sby-M-Type Natriuretic Peptide 43 pg/mL (0-124) Total Protein 7.4 g/dL (6.4-8.2) Albumin 3.5 g/dL (3.4-5.0) Albumin/Globulin Ratio 0.9 (1.0-1.7) L Lactic Acid Level 2.0 mmol/L (0.4-2.0) Urine Collection Type Unknown Urine Color Yellow Urine Clarity Clear Urine pH 5.0 (<5.0-8.0) Urine Specific [place]umway 1.025 (1.000-1.030) Urine Protein Negative mg/dL (NEG-TRACE) Urine Glucose (UA) Negative mg/dL (NEG) Urine Ketones (Stick) Negative mg/dL (NEG) Urine Blood Negative (NEG) Urine Nitrite Negative (NEG) Urine Bilirubin Negative (NEG) Urine Urobilinogen Dipstick 0.2 mg/dL (0.2 mg/dL) Urine Leukocyte Esterase Negative (NEG) Urine RBC 0 /HPF (0-2) Urine WBC 0 /HPF (0-4) Urine Squamous Epithelial Cells Occ /LPF Urine Bacteria 0 /HPF (0-FEW) Urine Mucus Mod /LPF Urine Opiates Screen Neg (NEG) Urine Methadone Screen Neg (NEG) Urine Barbiturates Neg (NEG) Urine Phencyclidine Screen Neg (NEG) Urine Amphetamine/Methamphetamine Neg (NEG) Urine Benzodiazepines Screen Neg (NEG) Urine Cocaine Screen Neg (NEG) Urine Cannabinoids Screen Neg (NEG) Urine Ethyl Alcohol Neg (NEG) Triglycerides Level 88 mg/dL (0-150) Cholesterol Level 139 mg/dL (0-200) LDL Cholesterol, Calculated 56 mg/dL (0-100) VLDL Cholesterol, Calculated 18 mg/dL (0-40) Non-HDL Cholesterol Calculated 74 mg/dL (0-129) HDL Cholesterol 65 mg/dL (40-60) H Cholesterol/HDL Ratio 2.1 Procalcitonin < 0.10 ng/mL (0.00-0.10) Test 04/09/20 07:42 Glucose (Fingerstick) 117 mg/dL (70-99) H Laboratory Tests 04/09/20 02:34 Laboratory Tests 04/09/20 02:34 ASSESSMENT/PLAN ASSESSMENT/PLAN 1. NSTEACS 2. HTN: controlled 3. HLP 4. DM2: per PCP 5. Morbid obesity 6. Post covid-19: + in 01/2020 and remains + in 03/26/2020 No symptoms Recommendations 1. Pt has not been able to obtain his medications run through the [facility]. Will consult social service. 2. PCI today, risks and benefits discussed and agreeable to proceed 3. Lipids, TTE 4. Start on heparin and NTG drip. ASA 5. Optimize GDMT ELIAZAR SCALES MD 04/09/20 6962: CARDIAC CONSULT ASSESSMENT/PLAN ASSESSMENT/PLAN Patient seen and examined. Agree with above nurse practitioner note. 60-year-old male well-known to our service who presents to the hospital in the setting of accelerating angina, elevated troponin and hypertensive urgency. He has known three-vessel coronary artery disease and in the setting was originally referred for consideration for arterial bypass and his films were reviewed by cardiac surgery service at [facility] and he was felt to be suboptimal candidate for bypass surgery given his poor distal targets in the RCA and circumflex territories. A plan was made initially for outpatient intervention. Unfortunately, the patient returned to the hospital sooner than anticipated due to the above-mentioned issues. I had a thorough discussion with the patient regarding the risks and benefits of percutaneous intervention in the setting of known three-vessel ischemic heart disease with suboptimal LV function. Today in the [employer]' initial attempts to angioplasty a mid LAD lesion were unsuccessful due to heavy circumferential calcification. At case completion there was adequate flow without any significant ST elevations and due to the patient's inability to tolerate further procedural intervention as well as limited progress with angioplasty a decision was made to abort the procedure and plan for staged high risk PCI with orbital atherectomy in the next 48 to 72 hours. Echocardiogram reviewed and notable for severe LV dysfunction. Currently he remains clinically stable, he several hours after the angioplasty and he has no evidence of ST elevations and he is resting comfortably on a nitroglycerin drip and a heparin drip. I have asked the patient repeatedly whether he would like us to notify his next of kin but he has declined. [facility] and has a coordinator. We will continue to convey things to the [facility] as able. CYNDI DE LA GARZA APRN Apr 09, 2020 09:58 ELIAZAR SCALES MD Apr 09, 2020 17:32
--- NOTE | 2020-04-09 10:02 | NUR ---
Pt sent to fence laborer via bed, Heparin gtt and nitro gtt infusing at this time. Consents in chart.
[2020-04-09] MEDS ORDERED: VERAPAMIL 5 MG/2 ML VIAL. ONE (10:06)
[2020-04-09] MEDS ORDERED: fentaNYL PF VIAL 100 MCG/2 ML VIAL ONE ×2 (10:06→11:23)
[2020-04-09] MEDS ORDERED: MIDAZOLAM HCL/PF 2 MG/2 ML VIAL. ONE ×2 (10:06→11:44)
[2020-04-09] MEDS ORDERED: HEPARIN for IV BOLUS 10,000 UNIT/10 ML VIAL. ONE (10:06)
[2020-04-09] MEDS: METOPROLOL TART IMMED RELEASE 25 MG TABLET. PO SCH ×2 (10:07→21:37)
[2020-04-09] MEDS ORDERED: NITROGLYCERIN 200 MCG/2 ML SYRINGE FOR CATH/VASC LAB. ONE ×2 (10:07→11:11)
[2020-04-09] MEDS ORDERED: TIROFIBAN 5MG -0.9% NS 100 ML IV ONE (10:58)
[2020-04-09] MEDS ORDERED: NITROGLYCERIN 200 MCG/2 ML SYRINGE FOR CATH/VASC LAB. ICAR ONE (11:15)
[2020-04-09] MEDS ORDERED: HEPARIN for IV BOLUS 10,000 UNIT/10 ML VIAL. IV ONE (11:15)
[2020-04-09] MEDS ORDERED: VERAPAMIL 5 MG/2 ML VIAL. IART ONE (11:15)
[2020-04-09] MEDS ORDERED: IOHEXOL 300 MG/ML 100ML VIAL. IART ONE (11:15)
[2020-04-09] MEDS ORDERED: HEPARIN for IV BOLUS 10,000 UNIT/10 ML VIAL. IART ONE (11:15)
[2020-04-09] MEDS ORDERED: TIROFIBAN 5MG -0.9% NS 100 ML IV PRN (11:15)
[2020-04-09] MEDS ORDERED: NITROGLYCERIN 200 MCG/2 ML SYRINGE FOR CATH/VASC LAB. IART ONE (11:15)
[2020-04-09] MEDS ORDERED: fentaNYL PF VIAL 100 MCG/2 ML VIAL IV ONE (11:15)
[2020-04-09] MEDS ORDERED: MIDAZOLAM HCL/PF 2 MG/2 ML VIAL. IV ONE (11:15)
[2020-04-09] MEDS ORDERED: LIDOCAINE 1% PF 2 ML VIAL. INJ ONE (11:15)
--- NOTE | 2020-04-09 12:11 | NUR ---
Pt to tx to ICU post cath, called Page to give report at 1156. Will send down belongings to ICU.
[2020-04-09] MEDS ORDERED: PERFLUTREN PROTEIN-A MICROSPHR 0.22 MG/ML 3 ML VIAL. IV ONE ×3 (12:29→13:00)
--- NOTE | 2020-04-09 12:38 | NUR ---
Pt to ICu room 108 via bed accompanied by medical lab technologist staff. Pt placed on monitors. Pt in SR with PVC's. Rates left shoulder and back pain at a 5 currently. Right wrist TR band with 15ml of air in place with no bleeding or oozing. Pt belongings brought down from CVC and in the room. Heparin and Nitro infusing into LAC 18g IV.
[2020-04-09] MEDS: ASPIRIN 325 MG TABLET PO SCH (13:06)
--- NOTE | 2020-04-09 13:16 | EKG ---
[facility] [address] [place] [address] Test Date: 2020-04-09 Test Time: 13:13:19 Pat Name: ALEJANDRO TENORIO Department: Room: 108 1 Gender: M Touch Up Carver: CLAUDE : 1960 Requested By: ELIAZAR SCALES Order Number: [id number] Reading MD: Sushil Baron Measurements Intervals Murray Rate: 79 P: 54 MA: 156 QRS: 73 QRSD: 110 T: -39 QT: 372 QTc: 433 Interpretive Statements SINUS RHYTHM T ABNORMALITY IN INFERIOR LEADS ABNORMAL ECG Electronically Signed On 04-14-2020 9:56:20 MACHINE FILLER by Sushil Baron
--- NOTE | 2020-04-09 14:43 | NUR ---
SS following for discharge planning. SS reviewed pt chart and discussed with pt RN. Pt is from [facility] and is currently on room air. Pt has triple vessel disease. Pt followed up at [facility] for CABG but was denied for CABG by insurance. Pt went to labour market economist today and stent was attempted but unsuccessful. Pt transferred to ICU room 108 and is on Nitro and Heparin drip. Pt will go back to labour market economist on 04/13/2020, to try again. SS will continue to follow for discharge planning.
--- NOTE | 2020-04-09 14:55 | CARD ---
MR#: [id number] Date of Study: 04/09/2020 Ordering Physician: CYNDI DE LA GARZA, Referring Physician: CYNDI DE LA GARZA, Tech: PROSPER SINGH RTR APPROVED REPORT Technologist: PROSPER SINGH RTR Nurse: Fawn Guerrero R.N. Procedure(s) performed: MODERATE SEDATION TIME: 74 MINUTES FLUORO TIME: 20.2 MIN DOSE: 190 GYCM2 CONTRAST: 237CC OMNI 300 LHC, Coronary angiography Complex POBA of the mid LAD [facility] Clinical Frailty Scale [facility] Clinical Frailty Scale: Moderately Frail Heart Failure Heart Failure: Yes If Yes, Newly Diagnosed: No If Yes, HF Type: Diastolic Systolic If Yes, NYHA Class: Class II PROCEDURE NARRATIVE Clinical information: 60-year-old man who presented to the hospital with chest pain in the setting of uncontrolled hyperten arturo and an elevated troponin consistent with non-ST elevation AR. He previously underwent cardiac c atheterization a few weeks ago in the setting of unstable angina on an outpatient basis and was found to have three-vessel coronary artery disease. At that time a consultation was made virtually with c ardiac surgeon Dr. Williamson at [facility] who reviewed the patient's films a nd felt that he did not have suitable RCA and circumflex targets to pursue surgical revascularization and felt that PCI of the LAD would be more appropriate. Patient was planned for an outpatient inter vention but was admitted to the hospital due to worsening chest pain. Procedure details: After appropriate informed consent the right wrist was prepped and draped in usual sterile fashion an d a 6 Thai sheath was inserted in the right radial artery without any difficulty. Next, diagnostic angiography was performed with a 6 Thai TIG catheter which confirmed mild left main disease as wel l as a proximally occluded left circumflex. There were collaterals noted from the distal LAD to the RCA. LVEDP was measured at 19 mmHg and there was no evidence of a pullback gradient. Heparin was used for anticoagulation and a bolus of tirofiban was administered. Through a 6 Thai E BU 3.5 guide catheter a Prowater wire was placed in the distal LAD. Initial balloon angioplasty with a 3.0 x 12 mm balloon revealed significant waist in the midportion of the balloon. There is also a medial hematoma which is extending distally and therefore balloon angioplasty was performed with a 2. 0 x 20 mm balloon as well as a 2.5 x 20 mm balloon. Repeat angioplasty was performed with a 3.0 x 8 mm noncompliant balloon. Attempts to deliver a 2.5 x 20 mm and a 2.25 x 20 mm drug-eluting stents we re unsuccessful despite use of a guide liner. A ishmael wire technique was also used and this also did not help deliver the stent. Finally attempts were made to deliver a 2.5 mm cutting balloon and unfo rtunately this was also unable to traverse the complex lesion. Due to lack of any significant ST timmy nges and patient's inability to lay flat on the table and prolonged procedure time with stable VALERIANO-3 flow a decision was made to stop the procedure with plans for atherectomy to help with stent deliver y in the near future. The patient was continued on a heparin drip and the right radial sheath was re moved and the patient was transported in stable but critical condition to the ICU. VALERIANO Flow VALERIANO Flow (Pre-Intervention): VALERIANO-3 VALERIANO Flow (Post-Intervention): VALERIANO-3 Conclusion 1. Acute on chronic diastolic heart failure. LVEDP 19 mm Hg 2. Severe three vessel coronary artery disease. 3. Unsuccessful POBA of the mid LAD due to heavy calcification Recommendations 1. ASA 81mg daily 2. Hep gtt 3. Will plan for high risk PCI with atherectomy in 72 hours. 4. I explained to the patient the nature of his critical coronary disease. He does not have any next of kin at this time that he wishes for us to notify. He currently resides in a skilled nursing and jake dominguez has been taking his medications. Will need to ensure with his family caseworker that he has all his meds filled prior to discharge. Signed by : Eloy Hernandez, Electronically Approved : 04/09/2020 14:54:43
--- NOTE | 2020-04-09 15:10 | CARD ---
MR#: [id number] Date of Study: 04/09/2020 Ordering Physician: CYNDI DE LA GARZA, Referring Physician: CYNDI DE LA GARZA Tech: Deepa Vic[facility] APPROVED REPORT EXAM: Two-dimensional and M-mode echocardiogram with Doppler and color Doppler. Other Information Quality : AverageHR: 87bpm Rhythm : NSR INDICATION CAD Echo Enhancing Agent Indication: Endocardial border delineation Agent/Amount Used: Optison 2mL RISK FACTORS Hypertension Obesity Hyperlipidemia Diabetes 2D DIMENSIONS RVDd3.7 (2.9-3.5cm)Left Atrium(2D)4.1 (1.6-4.0cm) IVSd1.2 (0.7-1.1cm)Aortic Root(2D)2.8 (2.0-3.7cm) LVDd6.3 (3.9-5.9cm)LVOT Diameter2.3 (1.8-2.4cm) PWd1.0 (0.7-1.1cm)LVDs4.6 (2.5-4.0cm) FS (%) 26.3 %SV102.0 ml LVEF(%)50.6 (>50%) Aortic Valve AoV Peak Wiliam.138.0cm/Adan Peak GR.8.3mmHg LVOT Peak Wiliam.97.2cm/sAVA (VMAX)2.84cm2 Mitral Valve MV E Jlofsngm42.2cm/sMV DECEL [id number] MV A Ggwyxcrk833.4cm/sE/A Ratio0.8 Pulmonary Valve PV Peak Gpnpzrue921.4cm/s LEFT VENTRICLE The Left Ventricle is moderately dilated. There is borderline to mild concentric left ventricular hyp ertrophy. The systolic function is severely impaired. Estimated ejection fraction 30-35%. The mid to distal septum, inferior wall are severely hypokinetic. Mild to moderate global hypokinesis. Tissue Do ppler imaging reveals moderate left ventricular diastolic dysfunction. No left ventricle thrombus not ed on this study. RIGHT VENTRICLE The right ventricle is normal size. There is normal right ventricular wall thickness. The right ventr icular systolic function is normal. ATRIA The left atrium size is normal. The right atrium size is normal. The interatrial septum is intact wit h no evidence for an atrial septal defect or patent foramen ovale as noted on 2-D or Doppler imaging. AORTIC VALVE The aortic valve is normal in structure and function. Doppler and Color Flow revealed no significant aortic regurgitation. There is no significant aortic valvular stenosis. MITRAL VALVE The mitral valve has a mildly dilated annulus There is no evidence of mitral valve prolapse. There is no mitral valve stenosis. Doppler and Color-flow revealed moderate mitral regurgitation. TRICUSPID VALVE The tricuspid valve is normal in structure and function. Doppler and Color Flow revealed no tricuspid valve regurgitation noted. There is no tricuspid valve stenosis. PULMONIC VALVE Doppler and Color Flow revealed no pulmonic valvular regurgitation. There is no pulmonic valvular kiah nosis. GREAT VESSELS The aortic root is normal in size. The ascending aorta is normal in size. Due to poor image quality, the IVC could not be assessed. PERICARDIAL EFFUSION There is no evidence of significant pericardial effusion. Critical Notification Critical Value: No <Conclusion> The systolic function is severely impaired. Estimated ejection fraction 30-35%. The mid to distal septum, inferior wall are severely hypokinetic. Mild to moderate global hypokinesis . No left ventricle thrombus noted on this study. Doppler and Color-flow revealed moderate mitral regurgitation. Technically difficult study requiring use of contrast enhancement Signed by : Eloy Hernandez, Electronically Approved : 04/09/2020 15:10:21
[2020-04-09] MEDS ORDERED: FUROSEMIDE 40 MG/4 ML VIAL. IVP ONE (15:30)
[2020-04-09] MEDS: HEPARIN for IV BOLUS 10,000 UNIT/10 ML VIAL. IV PRN (19:38)
[2020-04-09] MEDS: MORPHINE SULFATE 4 MG/ML VIAL. IV PRN (19:39)
[2020-04-09] MEDS: ATORVASTATIN CALCIUM 40 MG TABLET. PO SCH (21:37)
[2020-04-10] VITALS (14 sets, daily range): BP systolic 102–152; BP diastolic 53–85
[2020-04-10 00:08] LABS: HEMOGLOBIN A1C 6.4 % (4.8-5.6)
[2020-04-10 02:26] LABS: BASO # 0.1 x10^3/uL (0.0-0.2); BASO % 1 % (0-3); EOS # 0.1 x10^3/uL (0.0-0.7); EOS % 1 % (0-3); HEMATOCRIT 37.4 % (39.0-53.0); HEMOGLOBIN 12.7 g/dL (13.0-17.5); LYMPH # 2.4 x10^3/uL (1.0-4.8); LYMPH % 28 % (24-48); MEAN CORPUSCULAR HEMOGLOBIN 31 pg (25-35); MEAN CORPUSCULAR HGB CONC 34 g/dL (31-37); MEAN CORPUSCULAR VOLUME 91 fL (79-100); MONO # 0.7 x10^3/uL (0.0-1.1); MONO % 8 % (0-9); NEUT # 5.4 x10^3/uL (1.8-7.7); NEUT % 62 % (31-73); PLATELET COUNT 272 x10^3/uL (140-400); RED BLOOD COUNT 4.11 x10^6/uL (4.30-5.70); RED CELL DISTRIBUTION WIDTH 13.9 % (11.5-14.5); WHITE BLOOD COUNT 8.8 x10^3/uL (4.0-11.0)
[2020-04-10] MEDS: HEPARIN for IV BOLUS 10,000 UNIT/10 ML VIAL. IV PRN (02:48)
[2020-04-10] MEDS: MORPHINE SULFATE 4 MG/ML VIAL. IV PRN (03:39)
[2020-04-10 04:51] LABS: CALCIUM 9.1 mg/dL (8.5-10.1); CREATININE 1.1 mg/dL (0.7-1.3); GFR 68.5; POTASSIUM 3.9 mmol/L (3.5-5.1)
[2020-04-10] MEDS: HEPARIN 25,000UTS/250ML PREMIX 250 ML IV PRN ×2 (07:11→22:04)
[2020-04-10] MEDS: INSULIN LISPRO 300 UNITS/3 ML VIAL. SQ SCH ×3 (08:00→17:00)
[2020-04-10] MEDS: ASPIRIN 325 MG TABLET PO SCH (08:19)
--- NOTE | 2020-04-10 08:19 | PDOC ---
[employer] PROGRESS NOTE Date of Service DOS: DATE: 04/10/20 TIME: 08:18 Chief Complaint Chief Complaint A/P: Chest pain - unstable angina likely given triple vessel disease. Will trend troponins, telemetry. Cont monitoring CAD with stenting x2 - recent cardiac cath notes stenosis of prior RCA stenting and left circumflex occlusion and 70% LAD lesion. Cardiology to follow through with LAD on 04/13/2020 HTN - monitor BP HLD - statin DM2 - Sliding scale, A1c 6.4. Cont insulin, hold meformin for dye load FEN - ADA PPX - Heparin GTT FULL CODE Dispo - inpatient History of Present Illness History of Present Illness Mr Benjamin is a 60yo M w/ PMHx CAD with stenting x2, HTN, HLD, DM2 brought to ED via EMS from [facility] c/o left-sided chest pain. Radiates into his left arm. Pain is sharp and woke him up from sleep at 0200 in the morning. He complains of associated nausea no vomiting. He did have a redose of 81 mg of aspirin and nitroglycerin sublingual x2 doses with some relief. He does note recently tested positive for COVID-19 01/2020. He also tested positive for COVID-19 PCR on 03/26/2020 underwent a cardiac catheterization. He quit smoking in Mar. His last stress test was in Mar. He had a cardiac catheterization on 03/26/2020 with findings of triple vessel disease and had referral for CABG awaiting CT surgery assessment on whether to move forward with this vs return for stenting of LAD lesion confirmed on iFR in bottle label inspector. Noted with in-stent stenosis of 2 prior RCA stents and 100% occlusion of left circumflex. After CT surgery and [facility] (Dr. Williamson) reviewed cardiac cath images it was noted that there were no good distal targets and he was not a good candidate for CABG and should move forward with LAD stenting. EKG with PVCs. P-waves indicating left atrial abnormality T wave flattening indicative of inferior ischemia or left ventricular strain. Chest radiograph revealing cardiomegaly aortic arch with calcified plaques prominent pulmonary vasculature and increased interstitial markings as well as bibasilar opacities. Labs WBC 7.7, Hb 14, platelets 323, NA 138, K4.5, BUN 14, CR 0.9, glucose 168 BNP 43, troponin 0. Admitted for further care. 04/09: To cardiac bottle label inspector with attempted LAD angioplasty and stenting, due to ca lcifications, not completed, placed on heparin GTT and transferred to ICU for 72 hours No overnight events Vitals/I&O Vitals/I&O: Vital Signs Date Time Temp Pulse Resp B/P (MAP) Pulse Ox O2 Delivery O2 Flow Rate FiO2 04/10/20 07:00 89 17 113/77 (89) 96 Nasal Cannula 2.0 04/10/20 04:00 98.4 98.4 I & O 04/09/20 04/09/20 04/10/20 15:00 23:00 07:00 Intake Total 240 ml 585 ml 211 ml Output Total 750 ml 600 ml Balance 240 ml -165 ml -389 ml Physical Exam General: Alert, Oriented X3, Cooperative, No acute distress Heart: Regular rate, Normal S1, Normal S2, No murmurs Abdomen: Soft, No tenderness Extremities: No cyanosis, No edema Skin: No breakdown, No significant lesion Labs Labs: Laboratory Tests Test 04/09/20 09:24 04/09/20 13:03 04/09/20 17:24 04/09/20 18:00 Coronavirus (PCR) Not detected (Not Detected) SARS-CoV-2 Antigen (Rapid) Negative (NEGATIVE) Glucose (Fingerstick) 145 mg/dL (70-99) 136 mg/dL (70-99) Heparin Anti-Xa Act, Unfractionated < 0.10 IU/mL (0.30-0.70) Test 04/10/20 02:10 White Blood Count 8.8 x10^3/uL (4.0-11.0) Red Blood Count 4.11 x10^6/uL (4.30-5.70) Hemoglobin 12.7 g/dL (13.0-17.5) Hematocrit 37.4 % (39.0-53.0) Mean Corpuscular Volume 91 fL (79-100) Mean Corpuscular Hemoglobin 31 pg (25-35) Mean Corpuscular Hemoglobin Concent 34 g/dL (31-37) Red Cell Distribution Width 13.9 % (11.5-14.5) Platelet Count 272 x10^3/uL (140-400) Neutrophils (%) (Auto) 62 % (31-73) Lymphocytes (%) (Auto) 28 % (24-48) Monocytes (%) (Auto) 8 % (0-9) Eosinophils (%) (Auto) 1 % (0-3) Basophils (%) (Auto) 1 % (0-3) Neutrophils # (Auto) 5.4 x10^3/uL (1.8-7.7) Lymphocytes # (Auto) 2.4 x10^3/uL (1.0-4.8) Monocytes # (Auto) 0.7 x10^3/uL (0.0-1.1) Eosinophils # (Auto) 0.1 x10^3/uL (0.0-0.7) Basophils # (Auto) 0.1 x10^3/uL (0.0-0.2) Heparin Anti-Xa Act, Unfractionated 0.16 IU/mL (0.30-0.70) Sodium Level 135 mmol/L (136-145) Potassium Level 3.9 mmol/L (3.5-5.1) Chloride Level 99 mmol/L (98-107) Carbon Dioxide Level 26 mmol/L (21-32) Anion Gap 10 (6-14) Blood Urea Nitrogen 20 mg/dL (8-26) Creatinine 1.1 mg/dL (0.7-1.3) Estimated GFR (Cockcroft-Gault) 68.5 Glucose Level 136 mg/dL (70-99) Calcium Level 9.1 mg/dL (8.5-10.1) Assessment and Plan Assessmemt and Plan Problems Medical Problems: (1) Chest pain Status: Acute Comment Review of Relevant I have reviewed the following items pati (where applicable) has been applied. Medications: Current Medications Medications (Trade) Dose Ordered Sig/Hussain Route PRN Reason Start Time Stop Time Status Last Admin Dose Admin Metoprolol Tartrate (Lopressor) 25 mg BID PO 04/09/20 09:00 04/09/20 21:37 Heparin Sodium/ Dextrose 250 ml @ 0 mls/hr CONT PRN IV PER PROTOCOL 04/09/20 09:00 04/10/20 07:11 Heparin Sodium (Porcine) (Heparin Sodium) 2,850 unit PRN Q6HRS PRN IV FOR UFH LEVEL LESS THAN 0.2 04/09/20 09:00 04/10/20 02:48 Nitroglycerin/ Dextrose 250 ml @ 0 mls/hr 1X ONCE IV 04/09/20 09:00 04/09/20 09:07 DC 04/09/20 09:44 Atorvastatin Calcium (Lipitor) 40 mg QHS PO 04/09/20 21:00 04/09/20 21:37 Nitroglycerin (Nitroglycerin) 200 mcg 1X ONCE IART 04/09/20 11:15 04/09/20 11:20 DC 04/09/20 12:09 Verapamil HCl (Verapamil) 2.5 mg 1X ONCE IART 04/09/20 11:15 04/09/20 11:20 DC 04/09/20 12:11 Heparin Sodium (Porcine) (Heparin Sodium) 2,500 unit 1X ONCE IART 04/09/20 11:15 04/09/20 11:20 DC 04/09/20 12:11 Heparin Sodium/ Sodium Chloride (HEPARIN for ARTERIAL LINE FLUSH) 1,000 unit 1X ONCE IART 04/09/20 11:15 04/09/20 11:20 DC 04/09/20 12:08 Midazolam HCl (Versed) 2 mg 1X ONCE IV 04/09/20 11:15 04/09/20 11:20 DC 04/09/20 12:10 Fentanyl Citrate (Fentanyl 2ml Vial) 100 mcg 1X ONCE IV 04/09/20 11:15 04/09/20 11:20 DC 04/09/20 12:10 Iohexol (Omnipaque 300 Mg/ml) 100 ml 1X ONCE IART 04/09/20 11:15 04/09/20 11:20 DC 04/09/20 12:08 Heparin Sodium (Porcine) (Heparin Sodium) 4,000 unit 1X ONCE IV 04/09/20 11:15 04/09/20 11:20 DC 04/09/20 12:11 Tirofiban/Sodium Chloride 100 ml @ 0 mls/hr CONT PRN IV PER PROTOCOL 04/09/20 11:15 04/10/20 05:14 DC 04/09/20 12:08 Lidocaine HCl (Xylocaine-Mpf 1% 2ml Vial) 2 ml 1X ONCE INJ 04/09/20 11:15 04/09/20 11:20 DC 04/09/20 12:09 Nitroglycerin (Nitroglycerin) 200 mcg 1X ONCE ICAR 04/09/20 11:15 04/09/20 11:20 DC 04/09/20 12:09 Perflutren Protein Type A Microsphe (Optison) 0.66 mg 1X ONCE IV 04/09/20 12:30 04/09/20 12:31 DC 04/09/20 12:24 Perflutren Protein Type A Microsphe (Optison) 0.66 mg 1X ONCE IV 04/09/20 13:00 04/09/20 13:03 DC 04/09/20 13:00 Furosemide (Lasix) 40 mg 1X ONCE IVP 04/09/20 15:30 04/09/20 15:31 DC 04/09/20 17:35 Justifications for Admission Other Justification RIFLIAN LICEA MD Apr 10, 2020 08:19
[2020-04-10] MEDS: METOPROLOL TART IMMED RELEASE 25 MG TABLET. PO SCH (08:20)
[2020-04-10] MEDS: POTASSIUM CHLORIDE 20 MEQ TABLET.ER. PO SCH (10:15)
[2020-04-10] MEDS: LISINOPRIL 5 MG TABLET. PO SCH (10:18)
[2020-04-10] MEDS ORDERED: FUROSEMIDE 40 MG/4 ML VIAL. IVP SCH (10:30)
[2020-04-10] MEDS: LEVOTHYROXINE 25 MCG TABLET. PO SCH (12:02)
--- NOTE | 2020-04-10 12:56 | PDOC ---
CYNDI DE LA GARZA EDUCATOR SENIOR CLINICAL 04/10/20 1256: CARDIO Progress Notes Date and Time Date of Service 04/10/2020 Time of Evaluation 1000 Subjective Subjective: No Chest Pain, No shortness of breath, No Palpitations Vitals Vitals Vital Signs Date Time Temp Pulse Resp B/P (MAP) Pulse Ox O2 Delivery O2 Flow Rate FiO2 04/10/20 12:08 Nasal Cannula 2.0 04/10/20 12:07 98.2 72 11 149/79 (102) 94 98.2 Weight Weight [ ] Input and Output Intake and Output Intake and Output 04/10/20 07:00 Intake Total 1036 ml Output Total 1350 ml Balance -314 ml Intake Oral 720 ml IV Total 316 ml Output Urine Total 1350 ml # Voids 1 Laboratory Labs Laboratory Tests Test 04/09/20 13:03 04/09/20 17:24 04/09/20 18:00 04/10/20 02:10 Glucose (Fingerstick) 145 mg/dL (70-99) 136 mg/dL (70-99) Heparin Anti-Xa Act, Unfractionated < 0.10 IU/mL (0.30-0.70) 0.16 IU/mL (0.30-0.70) White Blood Count 8.8 x10^3/uL (4.0-11.0) Red Blood Count 4.11 x10^6/uL (4.30-5.70) Hemoglobin 12.7 g/dL (13.0-17.5) Hematocrit 37.4 % (39.0-53.0) Mean Corpuscular Volume 91 fL (79-100) Mean Corpuscular Hemoglobin 31 pg (25-35) Mean Corpuscular Hemoglobin Concent 34 g/dL (31-37) Red Cell Distribution Width 13.9 % (11.5-14.5) Platelet Count 272 x10^3/uL (140-400) Neutrophils (%) (Auto) 62 % (31-73) Lymphocytes (%) (Auto) 28 % (24-48) Monocytes (%) (Auto) 8 % (0-9) Eosinophils (%) (Auto) 1 % (0-3) Basophils (%) (Auto) 1 % (0-3) Neutrophils # (Auto) 5.4 x10^3/uL (1.8-7.7) Lymphocytes # (Auto) 2.4 x10^3/uL (1.0-4.8) Monocytes # (Auto) 0.7 x10^3/uL (0.0-1.1) Eosinophils # (Auto) 0.1 x10^3/uL (0.0-0.7) Basophils # (Auto) 0.1 x10^3/uL (0.0-0.2) Sodium Level 135 mmol/L (136-145) Potassium Level 3.9 mmol/L (3.5-5.1) Chloride Level 99 mmol/L (98-107) Carbon Dioxide Level 26 mmol/L (21-32) Anion Gap 10 (6-14) Blood Urea Nitrogen 20 mg/dL (8-26) Creatinine 1.1 mg/dL (0.7-1.3) Estimated GFR (Cockcroft-Gault) 68.5 Glucose Level 136 mg/dL (70-99) Calcium Level 9.1 mg/dL (8.5-10.1) Test 04/10/20 08:14 04/10/20 08:26 04/10/20 12:03 Glucose (Fingerstick) 124 mg/dL (70-99) 130 mg/dL (70-99) Heparin Anti-Xa Act, Unfractionated 0.30 IU/mL (0.30-0.70) Magnesium Level 2.2 mg/dL (1.8-2.4) Troponin I Quantitative 8.230 ng/mL (0.000-0.055) Physical Exam HEENT: Neck Supple W Full Motion Chest: Symmetric LUNGS: Other (diminished bases) Heart: S1S2, RRR (SR), no murmurs Abdomen: Soft N/T Extremities: No Edema, No Calf Tenderness Neurology: alert, oriented, follow commands Other Exams right wrist arteriotomy site intact, no erythema, swelling, neurovascular status intact. Assessment Assessment 1. NSTEACS 2. HTN: controlled 3. HLP 4. DM2: per PCP 5. Morbid obesity 6. Post covid-19: + in 01/2020 and remains + in 03/26/2020 and now negative PCR 7. Acute on chronic systolic/diastolic CHF: appears compensated 8. ICM: EF at 30-35% 9. Moderate MR 10. Hypothyroidism: on replacement Recommendations 1. Pt has not been able to obtain his medications run through the [facility]. Will consult social service. 2. Attempted angioplasty to mid LAD lesion were unsuccessful due to heavy circumferential calcification. At case completion there was adequate flow without any significant ST elevations and due to the patient's inability to tolerate further procedural intervention as well as limited progress with angio plasty a decision was made to abort the procedure and plan for staged high risk PCI with orbital atherectomy in the next 48 hours. 3. Continue ASA, statin, lisinopril toprol, heparin drip and NTG drip 4. Lasix therapy. Justicifation of Admission Dx: Justifications for Admission: Justification of Admission Dx: Yes ELIAZAR SCALES MD 04/11/20 0720: CARDIO Progress Notes Plan Plan Pt. seen and examined. AGree with above ULTRASONOGRAPHER note. Late entry fof 04/10/20 Spoke to cardiology, await transfer after insurance approval for high risk PCI. CYNDI DE LA GARZA APRN Apr 10, 2020 12:56 ELIAZAR SCALES MD Apr 11, 2020 07:20
[2020-04-10] MEDS ORDERED: LISI-517 PO (14:01)
[2020-04-10] MEDS ORDERED: INSU100V35 SQ (14:01)
[2020-04-10] MEDS ORDERED: METO50TA4 PO (14:01)
[2020-04-10] MEDS ORDERED: NITR50IN IV (14:01)
[2020-04-10] MEDS ORDERED: [UNRECOGNIZED DRUG - CODE] IV (14:01)
[2020-04-10] MEDS ORDERED: ASPI81TA59 PO (14:01)
[2020-04-10] MEDS ORDERED: POTA20TA4 PO (14:01)
--- NOTE | 2020-04-10 14:01 | SNU/HH DC ---
DISCHARGE ORDERS DISCHARGE INFORMATION: DISCHARGE DATE: Apr 13, 2020 FINAL DIAGNOSIS Problems Medical Problems: (1) Chest pain Status: Acute CONDITION ON DISCHARGE: Guarded CODE STATUS: Code Status: Full POST DISCHARGE ORDERS: ACTIVITY ORDERS: Activity as tolerated WEIGHT BEARING STATUS: Full weight bearing DIET AFTER DISCHARGE: ADA WOUND/INCISION CARE: Ice to area for comfort, Change dressing, May get incision wet CHECKS AFTER DISCHARGE: CHECKS AFTER DISCHARGE: Check blood press - daily, Weigh Yourself Daily TREATMENT/EQUIPMENT ORDERS: ADAPTIVE EQUIPMENT NEEDED: None RESPIRATORY EQUIPMENT NEEDED: Oxygen DISCHARGE MEDICATIONS: Home Meds Active Scripts Insulin Lispro (Admelog) 100 Unit/1 Ml Vial, 0 UNITS SQ TIDWMEALS for DM2 for 30 Days, #30 EACH Prov:LIAN VALERA MD 04/10/20 Potassium Chloride (KLOR-CON M20) 20 Meq Tab.er.prt, 20 MEQ PO DAILYWBKFT for CHF for 30 Days, #30 TAB.SR Prov:LIAN VALERA MD 04/10/20 Heparin Sodium,Porcine (HEPARIN SODIUM) 1,000 Unit/1 Ml Vial, 2850 UNIT IV PRN Q6HRS PRN for FOR UFH LEVEL LESS THAN 0.2 for 3 Days, #3 EACH Prov:ILAN VALERA MD 04/10/20 Metoprolol Succinate (Toprol XL) 50 Mg Tab.er.24h, 50 MG PO DAILY for CHF for 30 Days, #30 TAB.SR Prov:LIAN VALERA MD 04/10/20 Nitroglycerin/D5w (NTG 0.2 MG/ML IN D5W) 50 Mg/250 Ml Infus..btl, 50 MG IV CONT PRN for NSTEMI for 30 Days, EACH Prov:LIAN VALERA MD 04/10/20 Lisinopril (LISINOPRIL) 5 Mg Tablet, 5 MG PO DAILY for B/P for 30 Days, #30 TAB 0 Refills Prov:LIAN VALERA MD 04/10/20 Aspirin (Children's Aspirin) 81 Mg Tab.chew, 325 MG PO DAILY for CAD for 30 Days, #121 TAB.CHEW Prov:LIAN VALERA MD 04/10/20 Reported Medications Levothyroxine Sodium (LEVOTHYROXINE SODIUM) 25 Mcg Tablet, 1 TAB PO DAILY for thyroid med, #30 TAB 5 Refills 04/09/20 Omeprazole (OMEPRAZOLE) 40 Mg Capsule.dr, 1 CAP PO DAILY for heartburn, #30 CAP 3 Refills 04/09/20 Atorvastatin Calcium (ATORVASTATIN CALCIUM) 40 Mg Tablet, 1 TAB PO DAILY for HDL, #30 TAB 5 Refills 03/26/20 Fenofibrate,Micronized (FENOFIBRATE) 134 Mg Capsule, 1 CAP PO DAILY for HLD, #30 CAP 5 Refills 03/26/20 Furosemide (LASIX) 40 Mg Tablet, 40 MG PO BID, TAB 07/27/13 Discontinued Reported Medications Carvedilol (CARVEDILOL) 25 Mg Tablet, 25 MG PO BIDWMEALS for CARDIAC, TAB 03/26/20 Nitroglycerin (NITROGLYCERIN SubLingual) 0.4 Mg Tab.subl, 0.4 MG SL PRN Q5MIN PRN for CHEST PAIN, BOTTLE 03/26/20 Metformin HCl (Metformin HCl) 500 Mg/5 Ml Solution, 500 MG PO BID for dm, MISC 03/26/20 LIAN VALERA MD Apr 10, 2020 14:01
--- NOTE | 2020-04-10 14:10 | PDOC3 ---
Discharge Summary Visit Information Date of Admission: Apr 09, 2020 Date of Discharge: Apr 13, 2020 Admitting Diagnosis: Chest pain Final Diagnosis Problems Medical Problems: (1) Chest pain Status: Acute Brief Hospital Course Allergies Allergies Coded Allergies Type Severity Reaction Last Updated Verified codeine Allergy Intermediate Itching 04/09/20 Yes Vital Signs Vital Signs Date Time Temp Pulse Resp B/P (MAP) Pulse Ox O2 Delivery O2 Flow Rate FiO2 04/10/20 12:08 Nasal Cannula 2.0 04/10/20 12:07 98.2 72 11 149/79 (102) 94 98.2 Lab Results Laboratory Tests Test 04/09/20 02:34 04/09/20 02:46 04/09/20 03:58 04/09/20 07:25 White Blood Count 7.7 x10^3/uL (4.0-11.0) Red Blood Count 4.37 x10^6/uL (4.30-5.70) Hemoglobin 14.0 g/dL (13.0-17.5) Hematocrit 40.3 % (39.0-53.0) Mean Corpuscular Volume 92 fL (79-100) Mean Corpuscular Hemoglobin 32 pg (25-35) Mean Corpuscular Hemoglobin Concent 35 g/dL (31-37) Red Cell Distribution Width 13.8 % (11.5-14.5) Platelet Count 323 x10^3/uL (140-400) Neutrophils (%) (Auto) 52 % (31-73) Lymphocytes (%) (Auto) 37 % (24-48) Monocytes (%) (Auto) 7 % (0-9) Eosinophils (%) (Auto) 2 % (0-3) Basophils (%) (Auto) 2 % (0-3) Neutrophils # (Auto) 4.0 x10^3/uL (1.8-7.7) Lymphocytes # (Auto) 2.9 x10^3/uL (1.0-4.8) Monocytes # (Auto) 0.6 x10^3/uL (0.0-1.1) Eosinophils # (Auto) 0.1 x10^3/uL (0.0-0.7) Basophils # (Auto) 0.1 x10^3/uL (0.0-0.2) Sodium Level 138 mmol/L (136-145) Potassium Level 4.5 mmol/L (3.5-5.1) Chloride Level 103 mmol/L (98-107) Carbon Dioxide Level 25 mmol/L (21-32) Anion Gap 10 (6-14) Blood Urea Nitrogen 14 mg/dL (8-26) Creatinine 0.9 mg/dL (0.7-1.3) Estimated GFR (Cockcroft-Gault) 86.4 BUN/Creatinine Ratio 16 (6-20) Glucose Level 168 mg/dL (70-99) Calcium Level 8.9 mg/dL (8.5-10.1) Magnesium Level 2.1 mg/dL (1.8-2.4) Total Bilirubin 0.3 mg/dL (0.2-1.0) Aspartate Amino Transf (AST/SGOT) 19 U/L (15-37) Alanine Aminotransferase (ALT/SGPT) 48 U/L (16-63) Alkaline Phosphatase 55 U/L (46-116) Troponin I Quantitative < 0.017 ng/mL (0.000-0.055) 0.120 ng/mL (0.000-0.055) PQ-Fju-Q-Type Natriuretic Peptide 43 pg/mL (0-124) Total Protein 7.4 g/dL (6.4-8.2) Albumin 3.5 g/dL (3.4-5.0) Albumin/Globulin Ratio 0.9 (1.0-1.7) Lactic Acid Level 2.0 mmol/L (0.4-2.0) Urine Collection Type Unknown Urine Color Yellow Urine Clarity Clear Urine pH 5.0 (<5.0-8.0) Urine Specific [place] 1.025 (1.000-1.030) Urine Protein Negative mg/dL (NEG-TRACE) Urine Glucose (UA) Negative mg/dL (NEG) Urine Ketones (Stick) Negative mg/dL (NEG) Urine Blood Negative (NEG) Urine Nitrite Negative (NEG) Urine Bilirubin Negative (NEG) Urine Urobilinogen Dipstick 0.2 mg/dL (0.2 mg/dL) Urine Leukocyte Esterase Negative (NEG) Urine RBC 0 /HPF (0-2) Urine WBC 0 /HPF (0-4) Urine Squamous Epithelial Cells Occ /LPF Urine Bacteria 0 /HPF (0-FEW) Urine Mucus Mod /LPF Urine Opiates Screen Neg (NEG) Urine Methadone Screen Neg (NEG) Urine Barbiturates Neg (NEG) Urine Phencyclidine Screen Neg (NEG) Urine Amphetamine/Methamphetamine Neg (NEG) Urine Benzodiazepines Screen Neg (NEG) Urine Cocaine Screen Neg (NEG) Urine Cannabinoids Screen Neg (NEG) Urine Ethyl Alcohol Neg (NEG) Hemoglobin A1c 6.4 % (4.8-5.6) Triglycerides Level 88 mg/dL (0-150) Cholesterol Level 139 mg/dL (0-200) LDL Cholesterol, Calculated 56 mg/dL (0-100) VLDL Cholesterol, Calculated 18 mg/dL (0-40) Non-HDL Cholesterol Calculated 74 mg/dL (0-129) HDL Cholesterol 65 mg/dL (40-60) Cholesterol/HDL Ratio 2.1 Procalcitonin < 0.10 ng/mL (0.00-0.10) Test 04/09/20 07:42 04/09/20 09:24 04/09/20 13:03 04/09/20 17:24 Glucose (Fingerstick) 117 mg/dL (70-99) 145 mg/dL (70-99) 136 mg/dL (70-99) Coronavirus (PCR) Not detected (Not Detected) SARS-CoV-2 Antigen (Rapid) Negative (NEGATIVE) Test 04/09/20 18:00 04/10/20 02:10 04/10/20 08:14 04/10/20 08:26 Heparin Anti-Xa Act, Unfractionated < 0.10 IU/mL (0.30-0.70) 0.16 IU/mL (0.30-0.70) 0.30 IU/mL (0.30-0.70) White Blood Count 8.8 x10^3/uL (4.0-11.0) Red Blood Count 4.11 x10^6/uL (4.30-5.70) Hemoglobin 12.7 g/dL (13.0-17.5) Hematocrit 37.4 % (39.0-53.0) Mean Corpuscular Volume 91 fL (79-100) Mean Corpuscular Hemoglobin 31 pg (25-35) Mean Corpuscular Hemoglobin Concent 34 g/dL (31-37) Red Cell Distribution Width 13.9 % (11.5-14.5) Platelet Count 272 x10^3/uL (140-400) Neutrophils (%) (Auto) 62 % (31-73) Lymphocytes (%) (Auto) 28 % (24-48) Monocytes (%) (Auto) 8 % (0-9) Eosinophils (%) (Auto) 1 % (0-3) Basophils (%) (Auto) 1 % (0-3) Neutrophils # (Auto) 5.4 x10^3/uL (1.8-7.7) Lymphocytes # (Auto) 2.4 x10^3/uL (1.0-4.8) Monocytes # (Auto) 0.7 x10^3/uL (0.0-1.1) Eosinophils # (Auto) 0.1 x10^3/uL (0.0-0.7) Basophils # (Auto) 0.1 x10^3/uL (0.0-0.2) Sodium Level 135 mmol/L (136-145) Potassium Level 3.9 mmol/L (3.5-5.1) Chloride Level 99 mmol/L (98-107) Carbon Dioxide Level 26 mmol/L (21-32) Anion Gap 10 (6-14) Blood Urea Nitrogen 20 mg/dL (8-26) Creatinine 1.1 mg/dL (0.7-1.3) Estimated GFR (Cockcroft-Gault) 68.5 Glucose Level 136 mg/dL (70-99) Calcium Level 9.1 mg/dL (8.5-10.1) Glucose (Fingerstick) 124 mg/dL (70-99) Magnesium Level 2.2 mg/dL (1.8-2.4) Troponin I Quantitative 8.230 ng/mL (0.000-0.055) Test 04/10/20 12:03 Glucose (Fingerstick) 130 mg/dL (70-99) Laboratory Tests Test 04/09/20 17:24 04/09/20 18:00 04/10/20 02:10 04/10/20 08:14 Glucose (Fingerstick) 136 mg/dL (70-99) 124 mg/dL (70-99) Heparin Anti-Xa Act, Unfractionated < 0.10 IU/mL (0.30-0.70) 0.16 IU/mL (0.30-0.70) White Blood Count 8.8 x10^3/uL (4.0-11.0) Red Blood Count 4.11 x10^6/uL (4.30-5.70) Hemoglobin 12.7 g/dL (13.0-17.5) Hematocrit 37.4 % (39.0-53.0) Mean Corpuscular Volume 91 fL (79-100) Mean Corpuscular Hemoglobin 31 pg (25-35) Mean Corpuscular Hemoglobin Concent 34 g/dL (31-37) Red Cell Distribution Width 13.9 % (11.5-14.5) Platelet Count 272 x10^3/uL (140-400) Neutrophils (%) (Auto) 62 % (31-73) Lymphocytes (%) (Auto) 28 % (24-48) Monocytes (%) (Auto) 8 % (0-9) Eosinophils (%) (Auto) 1 % (0-3) Basophils (%) (Auto) 1 % (0-3) Neutrophils # (Auto) 5.4 x10^3/uL (1.8-7.7) Lymphocytes # (Auto) 2.4 x10^3/uL (1.0-4.8) Monocytes # (Auto) 0.7 x10^3/uL (0.0-1.1) Eosinophils # (Auto) 0.1 x10^3/uL (0.0-0.7) Basophils # (Auto) 0.1 x10^3/uL (0.0-0.2) Sodium Level 135 mmol/L (136-145) Potassium Level 3.9 mmol/L (3.5-5.1) Chloride Level 99 mmol/L (98-107) Carbon Dioxide Level 26 mmol/L (21-32) Anion Gap 10 (6-14) Blood Urea Nitrogen 20 mg/dL (8-26) Creatinine 1.1 mg/dL (0.7-1.3) Estimated GFR (Cockcroft-Gault) 68.5 Glucose Level 136 mg/dL (70-99) Calcium Level 9.1 mg/dL (8.5-10.1) Test 04/10/20 08:26 04/10/20 12:03 Heparin Anti-Xa Act, Unfractionated 0.30 IU/mL (0.30-0.70) Magnesium Level 2.2 mg/dL (1.8-2.4) Troponin I Quantitative 8.230 ng/mL (0.000-0.055) Glucose (Fingerstick) 130 mg/dL (70-99) Brief Hospital Course Mr Benjamin is a 60yo M w/ PMHx CAD with stenting x2, HTN, HLD, DM2 brought to ED via EMS from [facility] ([facility]) c/o left-sided chest pain on 04/09/2020. Radiated into his left arm. Pain was sharp and woke him up from sleep at 0200 in the morning. He c/o associated nausea no vomiting. He did have a redose of 81 mg of aspirin and nitroglycerin sublingual x2 doses with some relief. He does note recently tested positive for COVID-19 01/2020. He also tested positive for COVID-19 PCR on 03/26/2020 underwent a cardiac catheterization. He quit smoking in Mar. His last stress test was in Mar. He had a cardiac catheterization on 03/26/2020 with findings of triple vessel disease and had referral for CABG awaiting CT surgery assessment on whether to move forward with this vs return for stenting of LAD lesion confirmed on iFR in label cutter. Noted with in-stent stenosis of 2 prior RCA stents and 100% occlusion of left circumflex. After CT surgery referral there was d/w [facility] (Dr. Williamson) reviewed cardiac cath images it was noted that there were no good distal targets and he was not a good candidate for CABG and should move forward with LAD stenting. EKG with PVCs. P-waves indicating left atrial abnormality T wave flattening indicative of inferior ischemia or left ventricular strain. Chest radiograph revealing cardiomegaly aortic arch with calcified plaques prominent pulmonary vasculature and increased interstitial markings as well as bibasilar opacities. Labs WBC 7.7, Hb 14, platelets 323, NA 138, K4.5, BUN 14, CR 0.9, glucose 168 BNP 43, troponin 0. Admitted for further care. 04/09: To cardiac label cutter with attempted LAD angioplasty and stenting, due to calcifications, not completed, placed on heparin GTT and transferred to ICU for 72 hours. Repeat COVID 19 PCR testing negative. Day 2 - 04/10: No overnight events. Pain improved, still on NTG gtt and heparin GTT. D/w cardiology need to have referral to tertiary care center Day 3 - 04/11: Transferred from ICU on NTG and heparin GTT Day 4 - 04/12: Seen on CVC, stable, glucose controlled, on heparin and NTG gtt Discharged for further cardiac care Consults: Cardiology Problem list: Acute coronary syndrome - unstable angina likely given triple vessel disease. Cont telemetry. Cont monitoring CAD with stenting x2 - recent cardiac cath notes stenosis of prior RCA stenting and left circumflex occlusion and 70% LAD lesion, Attempted angioplasty to mid LAD lesion were unsuccessful due to heavy circumferential calcification. At case completion there was adequate flow without any significant ST elevations and due to the patient's inability to tolerate further procedural intervention as well as limited progress with angioplasty a decision was made to abort the procedure and plan for staged high risk PCI with orbital atherectomy in the next 48 hours. HTN - monitor BP HLD - statin DM2 - Sliding scale, A1c 6.4. Cont insulin, hold meformin for dye load Morbid obesity - counseled on diet, weight loss, lifestyle. He notes he is trying. Will be able to move back to [place] in may when released from [facility] incarceration [facility] Post covid-19 - in 01/2020 and remained + in 03/26/2020 and now negative PCR Acute on chronic systolic/diastolic CHF Ischemic cardiomyopathy - EF at 30-35%. On JEREMY, BB, ASA, statin Moderate MR Hypothyroidism - on replacement FEN - ADA PPX - Heparin GTT FULL CODE Dispo - inpatient, ICU post cardiac cath Plan: Continue ASA, statin, lisinopril toprol, heparin drip and NTG drip Follow recommendations of cardiology to Transfer to tertiary care center for LAD atherectomy with CT surgery availability which is not available at [facility] Discharge Information Condition at Discharge: Stable Disposition/Orders: D/C to Another Facility Scheduled Aspirin (Children's Aspirin) 81 Mg Tab.chew, 325 MG PO DAILY for CAD for 30 Days, #121 Prescribed by: LIAN VALERA MD on 04/10/20 1401 Atorvastatin Calcium (Atorvastatin Calcium) 40 Mg Tablet, 1 TAB PO DAILY for HDL, #30 Ref 5 (Reported) Entered as Reported by: CARLOS MANUEL TAPIA on 03/26/20 0817 Fenofibrate,Micronized (Fenofibrate) 134 Mg Capsule, 1 CAP PO DAILY for HLD, #30 Ref 5 (Reported) Entered as Reported by: CARLOS MANUEL TAPIA on 03/26/20 0817 Furosemide (Lasix) 40 Mg Tablet, 40 MG PO BID, (Reported) Entered as Reported by: LINDA CESAR on 07/27/13 1830 Insulin Lispro (Admelog) 100 Unit/1 Ml Vial, 0 UNITS SQ TIDWMEALS for DM2 for 30 Days, #30 Prescribed by: LIAN VALERA MD on 04/10/20 1401 Levothyroxine Sodium (Levothyroxine Sodium) 25 Mcg Tablet, 1 TAB PO DAILY for thyroid med, #30 Ref 5 (Reported) Entered as Reported by: Piter Byrd on 04/09/20532 Last Action: Continued on 04/10/20 1015 by LIAN VALERA MD Lisinopril (Lisinopril) 5 Mg Tablet, 5 MG PO DAILY for B/P for 30 Days, #30 Ref 0 Prescribed by: LIAN VALERA MD on 04/10/20 1401 Metoprolol Succinate (Toprol XL) 50 Mg Tab.er.24h, 50 MG PO DAILY for CHF for 30 Days, #30 Prescribed by: LIAN VALERA MD on 04/10/20 1401 Omeprazole (Omeprazole) 40 Mg Capsule.dr, 1 CAP PO DAILY for heartburn, #30 Ref 3 (Reported) Entered as Reported by: Piter Byrd on 04/09/20532 Last Action: New Order on 04/09/20532 by Piter Byrd Potassium Chloride (Klor-Con M20) 20 Meq Tab.er.prt, 20 MEQ PO DAILYWBKFT for CHF for 30 Days, #30 Prescribed by: LIAN VALERA MD on 04/10/20 1401 Scheduled PRN Heparin Sodium,Porcine (Heparin Sodium) 1,000 Unit/1 Ml Vial, 2,850 UNIT IV PRN Q6HRS PRN for FOR UFH LEVEL LESS THAN 0.2 for 3 Days, #3 Prescribed by: LIAN VALERA MD on 04/10/20 1401 Nitroglycerin/D5w (Ntg 0.2 Mg/Ml In D5w) 50 Mg/250 Ml Infus..btl, 50 MG IV CONT PRN for NSTEMI for 30 Days Prescribed by: LIAN VALERA MD on 04/10/20 1401 Discontinued Medications Carvedilol (Carvedilol) 25 Mg Tablet, 25 MG PO BIDWMEALS for CARDIAC, (Reported) Entered as Reported by: CARLOS MANUEL TAPIA on 03/26/20816 Metformin HCl (Metformin HCl) 500 Mg/5 Ml Solution, 500 MG PO BID for dm, (Reported) Entered as Reported by: CARLOS MANUEL TAPIA on 03/26/20816 Nitroglycerin (NITROGLYCERIN SubLingual) 0.4 Mg Tab.subl, 0.4 MG SL PRN Q5MIN PRN for CHEST PAIN, (Reported) Entered as Reported by: CARLOS MANUEL TAPIA on 03/26/20816 Justicifation of Admission Dx: Justifications for Admission: Justification of Admission Dx: Yes LIAN VALERA MD Apr 10, 2020 14:09
--- NOTE | 2020-04-10 17:16 | NUR ---
[facility] transfer team was called earlier per Dr Hernandez, all information needed sent to them. transfer team just called, stated they can't get ahold of the person they need to verify his insurance and won't be able to until Monday. Called Dr Hernandez, order to downgrade to CVC received. Will keep pt and await acceptance.
[2020-04-10] MEDS: METOPROLOL SUCC 24HR ER 50 MG TAB.ER.24H. PO SCH (17:25)
[2020-04-10] MEDS: ATORVASTATIN CALCIUM 40 MG TABLET. PO SCH (21:53)
[2020-04-10] MEDS: NITROGLYCERIN PREMIX 250 ML IV PRN (21:54)
[2020-04-11] VITALS (7 sets, daily range): BP systolic 112–161; BP diastolic 65–77
[2020-04-11 05:17] LABS: GFR 76.5; MAGNESIUM 2.2 mg/dL (1.8-2.4); POTASSIUM 3.8 mmol/L (3.5-5.1)
[2020-04-11] MEDS: LEVOTHYROXINE 25 MCG TABLET. PO SCH (05:49)
[2020-04-11] MEDS: INSULIN LISPRO 300 UNITS/3 ML VIAL. SQ SCH ×3 (08:00→17:00)
[2020-04-11] MEDS: POTASSIUM CHLORIDE 20 MEQ TABLET.ER. PO SCH (08:10)
[2020-04-11] MEDS: METOPROLOL SUCC 24HR ER 50 MG TAB.ER.24H. PO SCH (08:10)
[2020-04-11] MEDS: FUROSEMIDE 40 MG TABLET. PO SCH (08:11)
[2020-04-11] MEDS: LISINOPRIL 5 MG TABLET. PO SCH (08:11)
[2020-04-11] MEDS: ASPIRIN 325 MG TABLET PO SCH (08:12)
[2020-04-11] MEDS: HEPARIN 25,000UTS/250ML PREMIX 250 ML IV PRN (11:48)
--- NOTE | 2020-04-11 12:04 | PDOC ---
[employer] PROGRESS NOTE Date of Service DOS: DATE: 04/11/20 TIME: 11:09 Chief Complaint Chief Complaint A/P: Acute coronary syndrome - unstable angina likely given triple vessel disease. Cont telemetry. Cont monitoring CAD with stenting x2 - recent cardiac cath notes stenosis of prior RCA stenting and left circumflex occlusion and 70% LAD lesion, Attempted angioplasty to mid LAD lesion were unsuccessful due to heavy circumferential calcification. At case completion there was adequate flow without any significant ST elevations and due to the patient's inability to tolerate further procedural intervention as well as limited progress with angioplasty a decision was made to abort the procedure and plan for staged high risk PCI with orbital atherectomy in the next 48 hours. HTN - monitor BP HLD - statin DM2 - Sliding scale, A1c 6.4. Cont insulin, hold meformin for dye load Morbid obesity - counseled on diet, weight loss, lifestyle. He notes he is trying. Will be able to move back to [place] in may when released from [facility] Post covid-19 - in 01/2020 and remained + in 03/26/2020 and now negative PCR Acute on chronic systolic/diastolic CHF Ischemic cardiomyopathy - EF at 30-35%. On JEREMY, BB, ASA, statin Moderate MR Hypothyroidism - on replacement FEN - ADA PPX - Heparin GTT FULL CODE Dispo - inpatient History of Present Illness History of Present Illness Mr Benjamin is a 60yo M w/ PMHx CAD with stenting x2, HTN, HLD, DM2 brought to ED via EMS from [facility] c/o left-sided chest pain. Radiates into his left arm. Pain is sharp and woke him up from sleep at 0200 in the morning. He complains of associated nausea no vomiting. He did have a redose of 81 mg of aspirin and nitroglycerin sublingual x2 doses with some relief. He does note recently tested positive for COVID-19 01/2020. He also tested positive for COVID-19 PCR on 03/26/2020 underwent a cardiac catheterization. He quit smoking in Mar. His last stress test was in Mar. He had a cardiac catheterization on 03/26/2020 with findings of triple vessel disease and had referral for CABG awaiting CT surgery assessment on whether to move forward with this vs return for stenting of LAD lesion confirmed on iFR in lab coordinator. Noted with in-stent stenosis of 2 prior RCA stents and 100% occlusion of left circumflex. After CT surgery and [facility] (Dr. Williamson) reviewed cardiac cath images it was noted that there were no good distal targets and he was not a good candidate for CABG and should move forward with LAD stenting. EKG with PVCs. P-waves indicating left atrial abnormality T wave flattening indicative of inferior ischemia or left ventricular strain. Chest radiograph revealing cardiomegaly aortic arch with calcified plaques prominent pulmonary vasculature and increased interstitial markings as well as bibasilar opacities. Labs WBC 7.7, Hb 14, platelets 323, NA 138, K4.5, BUN 14, CR 0.9, glucose 168 BNP 43, troponin 0. Admitted for further care. 04/09: To cardiac lab coordinator with attempted LAD angioplasty and stenting, due to calcifications, not completed, placed on heparin GTT and transferred to ICU for 72 hours. Repeat COVID 19 PCR testing negative. 04/10: No overnight events. Still on heparin and NTG gtt. Some left shoulder and chest pain. Some nausea as well. D/w cardiology to transfer to tertiary care center, awaiting insurance per [facility]. No overnight events. Afebrile. No chest pain. Some mild shortness of breath and intermittent left shoulder pain. Still on heparin and NTG GTT. Plan: Ok for CVC transfer out of ICU Vitals/I&O Vitals/I&O: Vital Signs Date Time Temp Pulse Resp B/P (MAP) Pulse Ox O2 Delivery O2 Flow Rate FiO2 04/11/20 08:11 71 112/65 04/11/20 08:00 97.9 15 94 Room Air 97.9 04/11/20 08:00 2.0 I & O 04/10/20 04/10/20 04/11/20 15:00 23:00 07:00 Intake Total 360 ml 410 ml 276 ml Output Total 1275 ml 350 ml 500 ml Balance -915 ml 60 ml -224 ml Physical Exam General: Alert, Oriented X3, Cooperative, No acute distress Heart: Regular rate, Normal S1, Normal S2, No murmurs Abdomen: Soft, No tenderness Extremities: No cyanosis, No edema Skin: No breakdown, No significant lesion Labs Labs: Laboratory Tests Test 04/10/20 12:03 04/10/20 13:55 04/10/20 17:26 04/10/20 17:28 Glucose (Fingerstick) 130 mg/dL (70-99) 184 mg/dL (70-99) 132 mg/dL (70-99) Heparin Anti-Xa Act, Unfractionated 0.26 IU/mL (0.30-0.70) Test 04/10/20 19:20 04/10/20 19:22 04/10/20 21:10 04/11/20 04:45 Glucose (Fingerstick) 170 mg/dL (70-99) 161 mg/dL (70-99) Heparin Anti-Xa Act, Unfractionated 0.39 IU/mL (0.30-0.70) 0.52 IU/mL (0.30-0.70) Troponin I Quantitative 5.374 ng/mL (0.000-0.055) Sodium Level 135 mmol/L (136-145) Potassium Level 3.8 mmol/L (3.5-5.1) Chloride Level 97 mmol/L (98-107) Carbon Dioxide Level 27 mmol/L (21-32) Anion Gap 11 (6-14) Blood Urea Nitrogen 22 mg/dL (8-26) Creatinine 1.0 mg/dL (0.7-1.3) Estimated GFR (Cockcroft-Gault) 76.5 Glucose Level 127 mg/dL (70-99) Calcium Level 9.0 mg/dL (8.5-10.1) Magnesium Level 2.2 mg/dL (1.8-2.4) Assessment and Plan Assessmemt and Plan Problems Medical Problems: (1) Chest pain Status: Acute Comment Review of Relevant I have reviewed the following items pati (where applicable) has been applied. Medications: Current Medications Medications (Trade) Dose Ordered Sig/Hussain Route PRN Reason Start Time Stop Time Status Last Admin Dose Admin Metoprolol Succinate (Toprol Xl) 50 mg DAILY PO 04/10/20 16:00 04/11/20 08:10 Furosemide (Lasix) 40 mg DAILY PO 04/11/20 09:00 04/11/20 08:11 Justifications for Admission Other Justification LIAN VALERA MD Apr 11, 2020 12:03
--- NOTE | 2020-04-11 15:35 | PDOC ---
CARDIOLOGY PROGRESS NOTE SUBJECTIVE: No acute events overnight. He has mild 2 out of 10 chest pain. No significant worsening. OBJECTIVE: Vital Signs/I&O: Vital Signs Date Time Temp Pulse Resp B/P (MAP) Pulse Ox O2 Delivery O2 Flow Rate FiO2 04/11/20 12:00 97.8 89 17 126/74 (91) 92 Room Air 97.8 04/11/20 08:00 2.0 I & O 04/10/20 04/10/20 04/11/20 15:00 23:00 07:00 Intake Total 360 ml 410 ml 276 ml Output Total 1275 ml 350 ml 500 ml Balance -915 ml 60 ml -224 ml Objective: Exam is unchanged Heart tones are regular No pulmonary edema noted. CURRENT MEDICATIONS: Aspirin, metoprolol, Lasix, lisinopril, atorvastatin, nitroglycerin and heparin drip DIAGNOSTIC TESTING: Peak troponin 8 Labs: Laboratory Tests 04/11/20 04:45 Laboratory Tests Test 04/10/20 17:26 04/10/20 17:28 04/10/20 19:20 04/10/20 19:22 Glucose (Fingerstick) 184 mg/dL (70-99) H 132 mg/dL (70-99) H 170 mg/dL (70-99) H 161 mg/dL (70-99) H Test 04/10/20 21:10 04/11/20 04:45 04/11/20 11:47 Heparin Anti-Xa Act, Unfractionated 0.39 IU/mL (0.30-0.70) 0.52 IU/mL (0.30-0.70) Sodium Level 135 mmol/L (136-145) L Potassium Level 3.8 mmol/L (3.5-5.1) Chloride Level 97 mmol/L (98-107) L Carbon Dioxide Level 27 mmol/L (21-32) Anion Gap 11 (6-14) Blood Urea Nitrogen 22 mg/dL (8-26) Creatinine 1.0 mg/dL (0.7-1.3) Estimated GFR (Cockcroft-Gault) 76.5 Glucose Level 127 mg/dL (70-99) H Calcium Level 9.0 mg/dL (8.5-10.1) Glucose (Fingerstick) 152 mg/dL (70-99) H ASSESSMENT: 1. Ischemic cardiomyopathy with high risk non-ST elevation ID and failed b alloon angioplasty of the LAD PLAN: 1. Case discussed with [facility], given the patient's severe ischemic cardiomyopathy, severe three-vessel coronary artery disease not amenable to coronary bypass grafting upon initial consultation through [facility], given his young age and risk for complications and possible need for supportive care such as ECMO or urgent cardiac surgery we will plan for transfer to [facility]. The case has been discussed with the interventional cardiology team at [facility] and he is currently pending insurance approval for transfer. Continue current medical therapy. Supportive care. Justicifation of Admission Dx: Justifications for Admission: Justification of Admission Dx: Yes ELIAZAR SCALES MD Apr 11, 2020 15:35
[2020-04-11] MEDS: ATORVASTATIN CALCIUM 40 MG TABLET. PO SCH (21:33)
[2020-04-12] MEDS: HEPARIN 25,000UTS/250ML PREMIX 250 ML IV PRN ×2 (02:33→17:31)
[2020-04-12 02:56] VITALS: BP 141/69
[2020-04-12] MEDS: LEVOTHYROXINE 25 MCG TABLET. PO SCH (06:28)
[2020-04-12 06:39] VITALS: BP 112/70
[2020-04-12] MEDS: INSULIN LISPRO 300 UNITS/3 ML VIAL. SQ SCH ×3 (07:44→17:00)
[2020-04-12] MEDS: POTASSIUM CHLORIDE 20 MEQ TABLET.ER. PO SCH (08:18)
[2020-04-12] MEDS: ASPIRIN 325 MG TABLET PO SCH (08:18)
[2020-04-12] MEDS: LISINOPRIL 5 MG TABLET. PO SCH (08:18)
[2020-04-12] MEDS: FUROSEMIDE 40 MG TABLET. PO SCH (08:18)
[2020-04-12] MEDS: METOPROLOL SUCC 24HR ER 50 MG TAB.ER.24H. PO SCH (08:19)
--- NOTE | 2020-04-12 08:32 | PDOC ---
[employer] PROGRESS NOTE Date of Service DOS: DATE: 04/12/20 TIME: 08:21 Chief Complaint Chief Complaint A/P: Acute coronary syndrome - unstable angina likely given triple vessel disease. Cont telemetry. Cont monitoring CAD with stenting x2 - recent cardiac cath notes stenosis of prior RCA stenting and left circumflex occlusion and 70% LAD lesion, Attempted angioplasty to mid LAD lesion were unsuccessful due to heavy circumferential calcification. At case completion there was adequate flow without any significant ST elevations and due to the patient's inability to tolerate further procedural intervention as well as limited progress with angioplasty a decision was made to abort the procedure and plan for staged high risk PCI with orbital atherectomy in the next 48 hours. HTN - monitor BP HLD - statin DM2 - Sliding scale, A1c 6.4. Cont insulin, hold meformin for dye load Morbid obesity - counseled on diet, weight loss, lifestyle. He notes he is trying. Will be able to move back to [place] in may when released from [facility]- incarceration [facility], [place], operated by [facility] Post covid-19 - in 01/2020 and remained + in 03/26/2020 and now negative PCR Acute on chronic systolic/diastolic CHF Ischemic cardiomyopathy - EF at 30-35%. On JEREMY, BB, ASA, statin Moderate MR Hypothyroidism - on replacement FEN - ADA PPX - Heparin GTT FULL CODE Dispo - inpatient History of Present Illness History of Present Illness Mr Benjamin is a 60yo M w/ PMHx CAD with stenting x2, HTN, HLD, DM2 brought to ED via EMS from [facility] c/o left-sided chest pain. Radiates into his left arm. Pain is sharp and woke him up from sleep at 0200 in the morning. He complains of associated nausea no vomiting. He did have a redose of 81 mg of aspirin and nitroglycerin sublingual x2 doses with some relief. He does note recently tested positive for COVID-19 01/2020. He also tested positive for COVID-19 PCR on 03/26/2020 underwent a cardiac catheterization. He quit smoking in Mar. His last stress test was in Mar. 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 Noted with in-stent stenosis of 2 prior RCA stents and 100% occlusion of left circumflex. After CT surgery and [facility] (Dr. Willimason) reviewed cardiac cath images it was noted that there were no good distal targets and he was not a good candidate for CABG and should move forward with LAD stenting. EKG with PVCs. P-waves indicating left atrial abnormality T wave flattening indicative of inferior ischemia or left ventricular strain. Chest radiograph revealing cardiomegaly aortic arch with calcified plaques prominent pulmonary vasculature and increased interstitial markings as well as bibasilar opacities. Labs WBC 7.7, Hb 14, platelets 323, NA 138, K4.5, BUN 14, CR 0.9, glucose 168 BNP 43, troponin 0. Admitted for further care. 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 Repeat COVID 19 PCR testing negative. 04/10: No OE. Still on heparin and NTG gtt. Some left shoulder and chest pain. Some nausea as well. D/w cardiology to transfer to tertiary care center, awaiting insurance per [facility]. 04/11: No overnight events. Afebrile. No chest pain. Some mild shortness of breath and intermittent left shoulder pain. Still on heparin and NTG GTT. No OE. Remains on NTG and heparin GTT. Afebrile. Chest pain improved. Some SAPP going to the restroom. Plan: Ok for CVC. Plan to transfer to [facility] pending insurance, paperwork and discharge completed in anticipation Vitals/I&O Vitals/I&O: Vital Signs Date Time Temp Pulse Resp B/P (MAP) Pulse Ox O2 Delivery O2 Flow Rate FiO2 04/12/20 06:39 98.0 76 18 112/70 (84) 95 Room Air 98.0 04/11/20 20:20 2.0 I & O 04/11/20 04/11/20 04/12/20 15:00 23:00 07:00 Intake Total 360 ml 519 ml 491 ml Output Total 700 ml 550 ml Balance -340 ml -31 ml 491 ml Physical Exam General: Alert, Oriented X3, Cooperative, No acute distress Heart: Regular rate, Normal S1, Normal S2, No murmurs Abdomen: Soft, No tenderness Extremities: No cyanosis, No edema Skin: No breakdown, No significant lesion Labs Labs: Laboratory Tests Test 04/11/20 11:47 04/11/20 17:24 04/11/20 20:23 04/12/20 04:30 Glucose (Fingerstick) 152 mg/dL (70-99) 103 mg/dL (70-99) 146 mg/dL (70-99) Heparin Anti-Xa Act, Unfractionated 0.45 IU/mL (0.30-0.70) Test 04/12/20 06:56 Glucose (Fingerstick) 138 mg/dL (70-99) Assessment and Plan Assessmemt and Plan Problems Medical Problems: (1) Chest pain Status: Acute Comment Review of Relevant I have reviewed the following items pati (where applicable) has been applied. Medications: Current Medications Medications (Trade) Dose Ordered Sig/Hussain Route PRN Reason Start Time Stop Time Status Last Admin Dose Admin Furosemide (Lasix) 40 mg DAILY PO 04/11/20 09:00 04/11/20 08:11 Justifications for Admission Other Justification LIAN VALERA MD Apr 12, 2020 08:32
[2020-04-12 10:41] VITALS: BP 143/69
[2020-04-12] MEDS: NITROGLYCERIN PREMIX 250 ML IV PRN (10:49)
--- NOTE | 2020-04-12 12:02 | PDOC ---
CARDIOLOGY PROGRESS NOTE SUBJECTIVE: No acute events overnight. Tolerating meds. Eating and no pain with ambulation OBJECTIVE: Vital Signs/I&O: Vital Signs Date Time Temp Pulse Resp B/P (MAP) Pulse Ox O2 Delivery O2 Flow Rate FiO2 04/12/20 10:41 98.2 66 18 143/69 (93) 96 Room Air 98.2 04/12/20 08:00 2.0 I & O 04/11/20 04/11/20 04/12/20 15:00 23:00 07:00 Intake Total 360 ml 519 ml 491 ml Output Total 700 ml 550 ml Balance -340 ml -31 ml 491 ml Objective: No new changes. Normal heart tones. Normal lung sounds No edema. CURRENT MEDICATIONS: Meds reviewed. Toprol XL, ASA, Hep gtt, NTG gtt, Atorvastatin, Lisinopril DIAGNOSTIC TESTING: Labs reviewed Labs: Laboratory Tests Test 04/11/20 17:24 04/11/20 20:23 04/12/20 04:30 04/12/20 06:56 Glucose (Fingerstick) 103 mg/dL (70-99) H 146 mg/dL (70-99) H 138 mg/dL (70-99) H Heparin Anti-Xa Act, Unfractionated 0.45 IU/mL (0.30-0.70) Test 04/12/20 11:18 Glucose (Fingerstick) 147 mg/dL (70-99) H ASSESSMENT: 1. Severe ischemic CMP PLAN: 1. Awaiting transfer to [facility] for consideration of high risk CABG versus high risk PCI with atherectomy and CT surgery back up. Continue present meds. Justicifation of Admission Dx: Justifications for Admission: Justification of Admission Dx: Yes ELIAZAR SCALES MD Apr 12, 2020 12:02
[2020-04-12 14:40] VITALS: BP 138/74
[2020-04-12 19:45] VITALS: BP 119/70
[2020-04-12] MEDS: ATORVASTATIN CALCIUM 40 MG TABLET. PO SCH (20:08)
[2020-04-12 22:50] VITALS: BP 118/66
[2020-04-13 03:05] VITALS: BP 108/58
[2020-04-13 05:00] LABS: CREATININE 1.1 mg/dL (0.7-1.3); GFR 68.5; POTASSIUM 3.9 mmol/L (3.5-5.1)
[2020-04-13] MEDS: LEVOTHYROXINE 25 MCG TABLET. PO SCH (06:08)
[2020-04-13] MEDS: HEPARIN 25,000UTS/250ML PREMIX 250 ML IV PRN (06:09)
[2020-04-13 07:00] VITALS: BP 111/67
[2020-04-13] MEDS: POTASSIUM CHLORIDE 20 MEQ TABLET.ER. PO SCH (08:31)
[2020-04-13] MEDS: FUROSEMIDE 40 MG TABLET. PO SCH (08:31)
[2020-04-13] MEDS: METOPROLOL SUCC 24HR ER 50 MG TAB.ER.24H. PO SCH (08:34)
[2020-04-13] MEDS: ASPIRIN 325 MG TABLET PO SCH (08:34)
[2020-04-13] MEDS: LISINOPRIL 5 MG TABLET. PO SCH (08:34)
[2020-04-13] MEDS: INSULIN LISPRO 300 UNITS/3 ML VIAL. SQ SCH ×3 (08:35→16:53)
[2020-04-13 10:22] VITALS: BP 133/69
--- NOTE | 2020-04-13 11:04 | PDOC ---
[employer] PROGRESS NOTE Date of Service DOS: DATE: 04/13/20 TIME: 10:59 Chief Complaint Chief Complaint Acute coronary syndrome - unstable angina likely given triple vessel disease. CAD HTN - HLD - DM2 - Morbid obesity - Post covid-19 - Acute on chronic systolic/diastolic CHF Ischemic cardiomyopathy - Moderate MR Hypothyroidism - History of Present Illness History of Present Illness 04/13/20- Pt seen and examined Discussed with RN Chart reviewed Mr Benjamin is a 60yo M w/ PMHx CAD with stenting x2, HTN, HLD, DM2 brought to ED via EMS from [facility] c/o left-sided chest pain. Radiates into his left arm. Pain is sharp and woke him up from sleep at 0200 in the morning. He complains of associated nausea no vomiting. He did have a redose of 81 mg of aspirin and nitroglycerin sublingual x2 doses with some relief. He does note recently tested positive for COVID-19 01/2020. He also tested positive for COVID-19 PCR on 03/26/2020 underwent a cardiac catheterization. He quit smoking in Mar. His last stress test was in Mar. 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 Noted with in-stent stenosis of 2 prior RCA stents and 100% occlusion of left circumflex. After CT surgery and [facility] (Dr. Williamson) reviewed cardiac cath images it was noted that there were no good distal targets and he was not a good candidate for CABG and should move forward with LAD stenting. EKG with PVCs. P-waves indicating left atrial abnormality T wave flattening indicative of inferior ischemia or left ventricular strain. Chest radiograph revealing cardiomegaly aortic arch with calcified plaques prominent pulmonary vasculature and increased interstitial markings as well as b ibasilar opacities. Labs WBC 7.7, Hb 14, platelets 323, NA 138, K4.5, BUN 14, CR 0.9, glucose 168 BNP 43, troponin 0. Admitted for further care. 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 Repeat COVID 19 PCR testing negative. 04/10: No OE. Still on heparin and NTG gtt. Some left shoulder and chest pain. Some nausea as well. D/w cardiology to transfer to tertiary care center, awaiting insurance per [facility]. 04/11: No overnight events. Afebrile. No chest pain. Some mild shortness of breath and intermittent left shoulder pain. Still on heparin and NTG GTT. No OE. Remains on NTG and heparin GTT. Afebrile. Chest pain improved. Some SAPP going to the restroom. Plan: Ok for CVC. Plan to transfer to [facility] pending insurance, paperwork and discharge completed in anticipation Vitals/I&O Vitals/I&O: Vital Signs Date Time Temp Pulse Resp B/P (MAP) Pulse Ox O2 Delivery O2 Flow Rate FiO2 04/13/20 10:22 98.1 77 18 133/69 (90) 96 Room Air 98.1 04/12/20 08:00 2.0 I & O 04/12/20 04/12/20 04/13/20 15:00 23:00 07:00 Intake Total 120 ml 1128 ml 650 ml Output Total 550 ml Balance -430 ml 1128 ml 650 ml Physical Exam General: Alert, Oriented X3, Cooperative, No acute distress Heart: Regular rate, Normal S1, Normal S2, No murmurs Lungs: Clear Abdomen: Soft, No tenderness Extremities: No cyanosis, No edema Skin: No breakdown, No significant lesion Labs Labs: Laboratory Tests Test 04/12/20 11:18 04/12/20 16:07 04/12/20 20:33 04/13/20 04:21 Glucose (Fingerstick) 147 mg/dL (70-99) 111 mg/dL (70-99) 159 mg/dL (70-99) Heparin Anti-Xa Act, Unfractionated 0.34 IU/mL (0.30-0.70) Sodium Level 136 mmol/L (136-145) Potassium Level 3.9 mmol/L (3.5-5.1) Chloride Level 99 mmol/L (98-107) Carbon Dioxide Level 27 mmol/L (21-32) Anion Gap 10 (6-14) Blood Urea Nitrogen 17 mg/dL (8-26) Creatinine 1.1 mg/dL (0.7-1.3) Estimated GFR (Cockcroft-Gault) 68.5 Glucose Level 123 mg/dL (70-99) Calcium Level 9.0 mg/dL (8.5-10.1) Test 04/13/20 07:09 Glucose (Fingerstick) 139 mg/dL (70-99) Review of Systems Review of Systems: Complains of fatigue, hunger Assessment and Plan Assessmemt and Plan Problems Medical Problems: (1) Chest pain Status: Acute A/P: Discussed with case management, awaiting [facility] transfer. Monitor Labs DVT prophalaxis Full code Appreciate specialty input Cardiac monitoring Acute coronary syndrome - unstable angina likely given triple vessel disease. Cont telemetry. Cont monitoring CAD with stenting x2 - recent cardiac cath notes stenosis of prior RCA stenting and left circumflex occlusion and 70% LAD lesion, Attempted angioplasty to mid LAD lesion were unsuccessful due to heavy circumferential calcification. At case completion there was adequate flow without any significant ST elevations and due to the patient's inability to tolerate further procedural intervention as well as limited progress with angioplasty a decision was made to abort the procedure and plan for staged high risk PCI with orbital atherectomy in the next 48 hours. HTN - monitor BP HLD - statin DM2 - Sliding scale, A1c 6.4. Cont insulin, hold meformin for dye load Morbid obesity - counseled on diet, weight loss, lifestyle. He notes he is trying. Will be able to move back to [place] in may when released from [facility] incarceration [facility] Post covid-19 - in 01/2020 and remained + in 03/26/2020 and now negative PCR Acute on chronic systolic/diastolic CHF Ischemic cardiomyopathy - EF at 30-35%. On JEREMY, BB, ASA, statin Moderate MR Hypothyroidism - on replacement Comment Review of Relevant I have reviewed the following items pati (where applicable) has been applied. Justifications for Admission Other Justification GURVINDER LARES III DO Apr 13, 2020 11:04
--- NOTE | 2020-04-13 11:31 | NUR ---
SS following up with discharge planning. SS reviewed pt chart and discussed with pt RN. Pt is currently on room air. Pt needing transfer to other hospital for CABG. SS was notified that transfer request to was made on 04/10/2020. SS contacted and spoke with Gretchen, ; fax [phone]. Gretchen reported that no records had been received on pt and requested that SS fax records. SS sent records as requested. Gretchen contacted SS back and reported that they are out of network with pt's insurance and there financial department is contacting pt's insurance to see if single payor agreement can be accomplished. Gretchen reported that she will contact SS with more information when available. Packet placed on chart. SS will continue to follow for discharge planning.
--- NOTE | 2020-04-13 12:09 | PDOC ---
ESTEBAN RHOADES TIE TAPE MACHINE OPERATOR 04/13/20 1209: CARDIO Progress Notes Date and Time Date of Service 04/13/20 Time of Evaluation 1200 Subjective Subjective: No shortness of breath, No Palpitations, Other (no CP at rest ) Vitals Vitals Vital Signs Date Time Temp Pulse Resp B/P (MAP) Pulse Ox O2 Delivery O2 Flow Rate FiO2 04/13/20 10:22 98.1 77 18 133/69 (90) 96 Room Air 98.1 04/12/20 08:00 2.0 Weight Weight [ ] Input and Output Intake and Output Intake and Output 04/13/20 07:00 Intake Total 1898 ml Output Total 550 ml Balance 1348 ml Intake Oral 1320 ml IV Total 578 ml Output Urine Total 550 ml # Voids 3 Laboratory Labs Laboratory Tests Test 04/12/20 16:07 04/12/20 20:33 04/13/20 04:21 04/13/20 07:09 Glucose (Fingerstick) 111 mg/dL (70-99) 159 mg/dL (70-99) 139 mg/dL (70-99) Heparin Anti-Xa Act, Unfractionated 0.34 IU/mL (0.30-0.70) Sodium Level 136 mmol/L (136-145) Potassium Level 3.9 mmol/L (3.5-5.1) Chloride Level 99 mmol/L (98-107) Carbon Dioxide Level 27 mmol/L (21-32) Anion Gap 10 (6-14) Blood Urea Nitrogen 17 mg/dL (8-26) Creatinine 1.1 mg/dL (0.7-1.3) Estimated GFR (Cockcroft-Gault) 68.5 Glucose Level 123 mg/dL (70-99) Calcium Level 9.0 mg/dL (8.5-10.1) Test 04/13/20 11:10 Glucose (Fingerstick) 130 mg/dL (70-99) Physical Exam HEENT: Neck Supple W Full Motion Chest: Symmetric LUNGS: Other (diminished bases) Heart: S1S2, RRR (SR), no murmurs Abdomen: Soft N/T Extremities: No Edema, No Calf Tenderness Neurology: alert, oriented, follow commands Assessment Assessment 1. 3V CAD 2. Acute on chronic systolic/diastolic CHF: appears compensated 3. ICM; LVEF 30-35% 4. HTN: controlled 5. HLP 6. DM2: per PCP 7. Morbid obesity 8. Moderate MR 9. Hypothyroidism: on replacement Recommendations Secondary prevention Continue heparin, nitro gtt Awaiting transfer to [facility] for consideration of high risk CABG versus high risk PCI with atherectomy and CT surgery back up. Supportive care Justicifation of Admission Dx: Justifications for Admission: Justification of Admission Dx: Yes ELIAZAR SCALES MD 04/14/20 0007: CARDIO Progress Notes Plan Plan Late entry for 04/13/20 Pt. seen and examined. 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 awaiting transfer to [facility] ESTEBAN RHOADES APRN Apr 13, 2020 12:09 ELIAZAR SCALES MD Apr 14, 2020 00:07
[2020-04-13 14:14] VITALS: BP 104/60
--- NOTE | 2020-04-13 14:25 | NUR ---
RN NOTE this RN took over care for this patient and agrees with previous RNs assessments and notes. patient resting in bed with call light within reach.
--- NOTE | 2020-04-13 15:00 | NUR ---
SS following up with discharge planning. Pt accepted at [facility]. Accepting physician, Dr. Erick Browning. Bed# [id number]. Report# [phone]. Pt will discharge today and go to at 1645 via [facility] ambulance, . Pt and pt's RN notified. Packet, transfer form, and ambulance form on the chart.
--- NOTE | 2020-04-13 17:22 | NUR ---
Discharge NOTE patient transferred to [place] [id number] report given to Casie SWANSON [phone]. Vonnie called and message left regarding transfer. Patient discharged with IV and heparin gtt at 19ml/hr and Nitro gtt at 7.5ml/hr. Patient belongings packed up and sent with EMS.
== END 2020-04-13 17:25 | disposition short-term general hospital (02) | DRG 250 ==
LOC: ER 02:22 → 2 NORTH 03:52 → 1 WEST ICU 12:04 → 2 NORTH 04-11 18:15
PROVIDERS: ADMIT Internal Medicine; ATTEND Internal Medicine
PROC: 02703ZZ Dilation of Coronary Artery, One Artery, Percutaneous Approach (ICD-10-PCS; principal; 2020-04-09)
PROC: 4A023N7 Measurement of Cardiac Sampling and Pressure, Left Heart, Percutaneous Approach (ICD-10-PCS; 2020-04-09)
PROC: B2111ZZ Fluoroscopy of Multiple Coronary Arteries using Low Osmolar Contrast (ICD-10-PCS; 2020-04-09)
DX: I25.110 Atherosclerotic heart disease of native coronary artery with unstable angina pectoris (principal); I50.43 Acute on chronic combined systolic (congestive) and diastolic (congestive) heart failure; I11.0 Hypertensive heart disease with heart failure; E03.9 Hypothyroidism, unspecified; E10.9 Type 1 diabetes mellitus without complications; E66.01 Morbid (severe) obesity due to excess calories; E78.5 Hyperlipidemia, unspecified; F17.210 Nicotine dependence, cigarettes, uncomplicated; I16.0 Hypertensive urgency; I25.5 Ischemic cardiomyopathy; I25.82 Chronic total occlusion of coronary artery; I49.3 Ventricular premature depolarization; Z20.822 Contact with and (suspected) exposure to COVID-19; Z79.4 Long term (current) use of insulin; Z95.1 Presence of aortocoronary bypass graft; Z95.5 Presence of coronary angioplasty implant and graft; M19.90 Unspecified osteoarthritis, unspecified site; Z88.8 Allergy status to other drugs, medicaments and biological substances; Z68.37 Body mass index [BMI] 37.0-37.9, adult
CPT/HCPCS: 36415; 71045; 80048; 80053; 80061; 80307; 81001; 82962; 83036; 83605; 83735; 83880; 84145; 84484; 85025; 85520; 87426; 92920; 93005; 93306; 93458; 96361; 96374; 99152; 99153; 99285; C1713; C1725; C1769; C1887; C1892; J1644; J1815; J1940; J2250; J2270; J3010; J3490; J7040; Q9956; Q9967; U0003; C1874; G0378; J3246